=== PATIENT | female | born 1945 | race Caucasian/White ===

== ENCOUNTER → 2017-01-25 | Outpatient (CLI) | payer OTHER, BC ==
[~2017-01-25] MED LIST: ADVAIR 250-501 EACH INH; ALBUTEROL2.5 MG/31 INH; ALPRAZOLAM PO; ASPIRIN EC81 M1 PO; BENADRYL25 MG; BENADRYL25 MG PO; BYSTOLIC 5 MG5 M1 PO; CALCIUM 500 +1 EAC4 PO; CARAFATE1 GM/10 ML PO; CEFTIN 250 MG250 MG PO; CEPACOL SORE T1 EAC8 PO; CIPROFLOXACIN500 M1 PO; CO Q-10100 MG PO; CORRECTOL5 M1 PO; DULCOLAX5 MG PO; DYAZIDE 37.5-21 EACH PO; FLOMAX0.4 MG PO; HYDROXYCHLOROQ200 M1 PO; LIPITOR20 MG PO; MAGNESIUM400 M1 PO; MAGNESIUM400 MG PO; MEDROL4 MG PO; MEDROLDOSEPACK PO; MOM PO; MUCINEX TA600 MG/TA2 PO; MULTIVITAMINS PO; MULTIVITAMINS1 EAC7; NAPROSYN250 MG PO; NEXIUM 40 MG CA40 M1 PO; NORVASC 5 MG TAB5 MG PO; NYSTATIN 1100000 U/M PO; POTASSIUM20 PO; PREDNISONE 10 M10 M1 PO; PREDNISONE 10 M10 MG PO; PROTONIX40 M1 PO; VENTOLIN HFA 1818 GM INH; VIBRAMYCIN 100100 M2 PO; VITAMIN D400 UNI1; XANAX 0.25 MG0.25 MG; XANAX 0.5 MG0.5 MG PO
== END ==
LOC: RAD 03:42
DX: Z12.31 Encounter for screening mammogram for malignant neoplasm of breast (principal)

== ENCOUNTER → 2017-05-01 | Outpatient (CLI) | payer OTHER, BC ==
[~2017-05-01] MED LIST changes: +ADVAIR HFA 230M12 GM INH; +BYSTOLIC2.5 MG PO; +HYDROCHLOROTH12.5 M2 PO; +MEDROL8 MG PO; +PLAVIX 75 MG TA75 M1 PO; +XANAX1 MG PO; +ZANTAC 7575 MG PO; +ZETIA10 MG PO; +[UNRECOGNIZED DRUG - OTHER] PO
== END ==
LOC: ULTRA 09:09
DX: E04.1 Nontoxic single thyroid nodule (principal); J18.9 Pneumonia, unspecified organism; K21.9 Gastro-esophageal reflux disease without esophagitis; E87.6 Hypokalemia; E83.42 Hypomagnesemia; Z90.49 Acquired absence of other specified parts of digestive tract; Z98.890 Other specified postprocedural states; Z87.891 Personal history of nicotine dependence

== ENCOUNTER → 2017-05-27 | Outpatient (CLI) | payer OTHER, BC ==
--- NOTE | ~2017-05-27 | CNG ---
[facility] [place] [address] CYTO-NONGYN REPORT PROCEDURE Name: SAMANTHA GONZALEZ Room #: REG BLANCA FultonRoger.#: [id number] Admission: 05/27/17 Date of : 43 Discharge: Report #: [id number] Path Case #: [id number] CYTOPATHOLOGY REPORT COLLECTION DATE: 05/27/2017 RECEIVED DATE: 05/28/2017 SUBMITTING PHYS: Dr. Braulio York OTHER PHYS: Dr. Braulio Espinoza CLINICAL HISTORY: Left superior neck thyroid nodule SPECIMEN(S) RECEIVED: A.Fine needle aspiration,Left superior neck thyroid * * * * * * * * * * * * FINAL DIAGNOSIS: A. Fine needle aspiration, left superior neck thyroid: - BETHESDA CATEGORY III FOLLICULAR LESION OF UNDETERMINED SIGNIFICANCE. - THYROID FOLLICULAR CELLS WITH FOCAL NUCLEAR ATYPIA, BACKGROUND COLLOID AND RARE MACROPHAGES. (SEE COMMENT) COMMENT: Cytomorphological examination is limited due to only air-dried Diff-Quik stained smears being available for evaluation. A pap stained ThinPrep slide and cell block are also available. The thyroid follicular cells are predominantly in a macrofollicular pattern; however, focal nuclear atypia is noted. Background colloid and rare macrophages are also seen. The findings represent a follicular lesion of undetermined significance. Clinical and radiographic correlation is required. The case is co-reviewed with Dr. Luly Nava. PATHOLOGIST: Kady Lees M.D. REPORT ELECTRONICALLY SIGNED BY: Kady Lees M.D. DATE/TIME: 05/29/2017 16:44 * * * * * * * * * * * * GROSS PATHOLOGY: A. Fine needle aspiration,Left superior neck thyroid: The specimen is labeled "Samantha Gonzalez" and consists of two air dried slides. Twenty-eight mL of cloudy red fluid in fixative from the needle rinse is also submitted and one ThinPrep slide and an alcohol fixed cell block were prepared from this material. (mm 05.28.2017) RADIO DIVISION CAPTAIN(S): EVELIA Ponce(ASCP) [address] [address] CYTO-NONGYN REPORT PROCEDURE Name: SAMANTHA GONZALEZ [facility] [id number] Admission: 05/27/17 Date of : 43 Discharge: Report #: [id number] Path Case #: [id number] INITIAL CPT CODE(S): A; 74231, 03411 Professional services performed by [facility] at [address], [place] [address] Technical services performed by [facility] at [address] [place] [address], [facility] [address], [place] [address]. PROCEDURE REPORT (Order Date: 07/03/2017 00:00) COMMENT: Please see next page for scanned image of report submitted by [facility] programmer analyst consultant pathologist, Brenda Simeon MD. (CLW:robert; d/t: 07/22/2017) PATHOLOGIST: Kady Lees M.D. REPORT ELECTRONICALLY SIGNED BY: Kady Lees M.D. DATE/TIME: 07/22/2017 22:20 [facility] [address] [facility], [address] [place] [address] PHONE: [phone] DIRECTOR: Nic Alicia M.D. * * * END OF REPORT * * *
== END | disposition home or self-care (01) ==
LOC: SPEC 07:23
DX: E04.2 Nontoxic multinodular goiter (principal); Z88.0 Allergy status to penicillin; Z88.8 Allergy status to other drugs, medicaments and biological substances; Z79.899 Other long term (current) drug therapy; Z79.82 Long term (current) use of aspirin; Z98.890 Other specified postprocedural states

== ENCOUNTER → 2017-09-09 | Outpatient (CLI) | payer OTHER, BC ==
[~2017-09-09] MED LIST changes: -ADVAIR HFA 230M12 GM INH; -BYSTOLIC2.5 MG PO; -HYDROCHLOROTH12.5 M2 PO; -MEDROL8 MG PO; -PLAVIX 75 MG TA75 M1 PO; -XANAX1 MG PO; -ZANTAC 7575 MG PO; -ZETIA10 MG PO; -[UNRECOGNIZED DRUG - OTHER] PO
== END ==
LOC: ULTRA 08:23
DX: I77.1 Stricture of artery (principal)

== ENCOUNTER → 2018-03-06 | Outpatient (CLI) | payer OTHER, BC ==
[~2018-03-06] MED LIST changes: +ADVAIR HFA 230M12 GM INH; +BYSTOLIC2.5 MG PO; +HYDROCHLOROTH12.5 M2 PO; +MEDROL8 MG PO; +PLAVIX 75 MG TA75 M1 PO; +XANAX1 MG PO; +ZANTAC 7575 MG PO; +ZETIA10 MG PO; +[UNRECOGNIZED DRUG - OTHER] PO
== END ==
LOC: ULTRA 10:09
DX: E04.2 Nontoxic multinodular goiter (principal)

== ENCOUNTER → 2018-06-11 | Outpatient (CLI) | payer OTHER, BC | LOC: RAD 10:33 | DX: Z12.31 Encounter for screening mammogram for malignant neoplasm of breast (principal) ==

== ENCOUNTER → 2018-09-26 | Outpatient (CLI) | payer OTHER, BC | LOC: ULTRA 01:18 | DX: N64.59 Other signs and symptoms in breast (principal); C34.91 Malignant neoplasm of unspecified part of right bronchus or lung ==

== ENCOUNTER → 2018-11-04 | Outpatient (CLI) | payer OTHER, BC ==
[2018-11-04 09:17] LABS: CREATININE 1.4 mg/dL (0.6-1.0)
== END ==
LOC: CAT 08:45
PROVIDERS: Internal Medicine Rheumatology
DX: I65.23 Occlusion and stenosis of bilateral carotid arteries (principal); L29.9 Pruritus, unspecified

== ENCOUNTER 2018-12-05 05:30 | Inpatient (IN) | payer OTHER, BC ==
[2018-12-01 10:40] LABS: URINE BILIRUBIN NEGATIVE (Negative); URINE BLOOD NEGATIVE (Negative); URINE CLARITY CLEAR; URINE COLOR YELLOW; URINE GLUCOSE-RANDOM* NEGATIVE (Negative); URINE KETONES NEGATIVE (Negative); URINE LEUKOCYTES-REFLEX 1+ (Negative); URINE NITRITE-REFLEX NEGATIVE (Negative); URINE PROTEIN (DIPSTICK) NEGATIVE (Negative); URINE UROBILINOGEN 0.2 E.U./dl (0.2-1.0)
[2018-12-01 10:56] LABS: BACTERIA-REFLEX 1-9 Few /HPF (None Seen); CASTS None Seen /LPF (None Seen); CRYSTALS None Seen /LPF (None Seen); SQUAMOUS 0-3 Few /LPF (0-3); URINE RBC 0-2 Rare /HPF (0-2); URINE WBC-REFLEX 0-5 Rare /HPF (0-5)
[2018-12-01 11:48] LABS: ABSOLUTE NEUTROPHILS 10.1 thou/uL (1.4-8.2); BASOPHILS 0.3 % (0.0-2.0); EOSINOPHILS 0.2 % (0.0-3.0); HEMATOCRIT 37.1 % (37.0-47.0); HEMOGLOBIN 11.9 gm/dL (12.0-15.0); LYMPHOCYTES 4.8 % (24.0-44.0); MCH 30.5 pg (26.0-34.0); MCV 95.1 fL (80.0-100.0); MONOCYTES 3.9 % (1.0-8.0); PLATELET COUNT 227 thou/uL (150-400); POLYS 90.8 % (36.0-66.0); WBC 11.1 thou/uL (4.0-11.0)
[2018-12-01 11:59] LABS: APTT 24.9 Seconds (24.5-32.8); PROTIME 9.9 Seconds (9.3-11.4)
[2018-12-01 12:04] LABS: ALBUMIN 3.7 g/dL (3.4-5.0); CALCIUM 9.2 mg/dL (8.5-10.1); CREATININE 1.4 mg/dL (0.6-1.0); POTASSIUM 4.1 mmol/L (3.5-5.1); TOTAL BILIRUBIN 0.4 mg/dL (<0.1-1.0); TOTAL PROTEIN 7.1 g/dL (6.4-8.2)
--- NOTE | 2018-12-02 08:36 | EKG ---
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 12/02/18 0836 41 41 Manas Hammer MD, [facility] /EPI
[~2018-12-05] VITALS: Ht 157.5 cm; Wt 49.0 kg
[~2018-12-05 05:30] MED LIST changes: +CLOBETASOL PROP15 GM TOP; +NICORELIEF2 MG PO; +PREMARIN30 GM TOP; +WIXELA 500-501 EACH INH; +ZANTAC 150MG T150 M1 PO
[2018-12-09] VITALS (19 sets, daily range): BP systolic 96–153; BP diastolic 41–72
--- NOTE | 2018-12-09 19:43 | NUR ---
ASSUMED CARE AT 1330. PT TRANSFERRED FROM RECOVERY ROOM POST R FEMORAL ENDARTERECTOMY. PT ARRIVED WITH ELFEGO WOUND VAC TO RIGHT GROIN. VAC DRESSING INTACT, NO LEAK NOTED. PT SHORTLY AFTER ARRIVAL BECAME VERY ANXIOUS AND STATED SHE WAS FEELING SOB. RT GAVE PT BREATHING TX. PT STATED SHE STILL FELT SOB, LUNGS WERE AUSCULTATED AND CLEAR/DIM ON AUSCULTATION. RN REVIEWED PT'S HOME MEDICATIONS WITH HER AND NOTED ANTI-ANXIETY MEDICATION. PHYSICIAN UPDATED ORDERS FOR HOME MEDS AND ANTI-ANXIETY MEDICATION ADMINISTERED ORDERED. PT STATED SHE FELT MUCH RELIEF AND WAS NO LONGER SOA. PT'S DORSALIS PEDIS AND POSTERIOR TIBIAL PULSE DOPPLED. R FOOT IS WARM TO TOUCH AND PT STATES SHE IS NO LONGER HAVING SHOOTING PAINS LIKE SHE WAS HAVING PRIOR TO SURGERY. PT GOT UP TO BEDSIDE COMMODE WITH 1 ASSIST, USE OF GAIT BELT AND YELLOW NON-SKID SOCKS. PT STATES SHE WOULD LIKE TO WORK ON STAIRS WITH PT TOMORROW BECAUSE SHE HAS STAIRS AT HOME.
[2018-12-10] VITALS (14 sets, daily range): BP systolic 103–142; BP diastolic 48–85
[2018-12-10 04:44] LABS: HEMATOCRIT 28.7 % (37.0-47.0); HEMOGLOBIN 9.2 gm/dL (12.0-15.0); MCH 30.6 pg (26.0-34.0); MCHC 33.2 % (28.0-37.0); MCV 94.9 fL (80.0-100.0); RBC 3.02 mil/uL (4.20-5.00); RDW 15.7 % (10.5-14.5); WBC 7.7 thou/uL (4.0-11.0)
[2018-12-10 04:46] LABS: CALCIUM 8.6 mg/dL (8.5-10.1); CREATININE 1.3 mg/dL (0.6-1.0); MAGNESIUM 1.6 mg/dL (1.8-2.4); POTASSIUM 4.6 mmol/L (3.5-5.1); TROPONIN-I 0.12 ng/mL (<0.06)
--- NOTE | 2018-12-10 06:30 | NUR ---
PT A&O, DENIES PAIN. WOUND VAC TO R GROIN, NO DRAINAGE OVERNIGHT. AROUND 0100, PT HAD A TEN BEAT RUN OF VTACH. DR. WEEKS NOTIFIED. LABS ORDERED BY RITA. LOW AND REPLACED. PT HAD ONE MORE INCIDENT WITH A SIX BEAT RUN OF VTACH AT 0200. SINCE THEN, PT HAS REMAINED SINUS RHYTHM. WILL CONTINUE TO MONITOR.
--- NOTE | 2018-12-10 07:45 | EKG ---
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 : 1945 Requested By: Ryann Morgan Order Number: [id number] MD: Manas Hammer Measurements Intervals [place] Rate: 86 P: 67 ID: 160 QRS: 72 QRSD: 118 T: 33 QT: 407 QTc: 487 Interpretive Statements Sinus rhythm Early R-wave progression Compared to ECG 12/01/2018 10:42:58 Right bundle branch block is no longer present Electronically Signed On 12-10-2018 7:44:52 CDT by Manas Hammer [email or web address] <ELECTRONICALLY SIGNED> By: Manas Hammer MD, [facility] 12/10/18 0744 1152 1152 Manas Hammer MD, [facility] /EPI
[2018-12-10 08:42] LABS: HEMOGLOBIN 9.6 gm/dL (12.0-15.0); MCH 31.3 pg (26.0-34.0); RBC 3.05 mil/uL (4.20-5.00); RDW 15.7 % (10.5-14.5)
[2018-12-10 08:51] LABS: CREATININE 1.4 mg/dL (0.6-1.0); MAGNESIUM 2.7 mg/dL (1.8-2.4); POTASSIUM 4.3 mmol/L (3.5-5.1)
--- NOTE | 2018-12-10 10:21 | NUR ---
REPORT RECEIVED FROM PREVIOUS RN. DENIES DISCOMFORT, ALERT/ORIENTED X 4, COOPERATIVE, XANAX GIVEN PER PT REQUEST FOR ANXIETY, SR, SA02 DOWN TO 84% WHEN SLEEPING- 2L/NC REPLACED, THEN O2 OFF WHEN PT AWAKE, MOIST/DRY NONPRODUCTIVE COUGH, DENIES HAVING DIFFICULTY BREATHING "NO MORE THAN MY USUAL", TOLERATING MEAL, VOIDS ADEQUATE AMOUNT PER [facility]. UPDATING PT AND SPOUSE ON ALL CARES.
--- NOTE | 2018-12-10 11:20 | NUR ---
REPORT GIVEN TO LONA SCHMIDT. PT AMBULATED WITH [facility]. PT TRANSFERRED TO ROOM 206 ON MONITOR PER WHEELCHAIR WITH BEBA POZO. SPOUSE PRESENT.
--- NOTE | 2018-12-10 13:42 | NUR ---
PT TRANSFERRED FROM ICU WITH SPOUSE ACCOMPANIED BY STAFF, VIA W/C A&0X4, USED RESTROOM, UNSTEADY, STATES THIS IS NEW FOR HER, ICU ALSO GAVE THIS REPORT. R GROIN SITE WITH WOUND VAC, PREVEENA, SLIGHTLY MORE PRONOUNCED THEN LEFT SIDE, NO HEMATOMA, HAD CHARGE NURSE ALSO EVAL. PT DECLINES PAIN MEDICATION YET DOES WANT US TO KEEP ON TOP OF HER XANAX. ROOM AIR, TELE, SEE SEPARATE INTERVENTIONS FOR ASSESSMENTS
--- NOTE | 2018-12-10 16:41 | 2DMMODE ---
[facility] [place] [address] 2 D/M-MODE ECHOCARDIOGRAM Name: JOLIE ARENAS Room #: 206-P [facility] IN M.R.#: [id number] Admission: 12/09/18 Attend Phys: Will Lance MD Discharge: Date of : 43 Date of Service: 12/10/18 [facility] Report #: [id number] THIS REPORT FOR: //name// APPROVED REPORT Study performed: 12/10/2018 14:53:54 EXAM: Comprehensive 2D, Doppler, and color-flow Echocardiogram Patient Location: Bedside Room #: [facility] Status: routine BSA: 1.47 HR: 85 bpm BP: 111/78 mmHg Rhythm: NSR Other Information Study Quality: Adequate Indications COPD CAD Hypertension/HDD 2D Dimensions LVOT Diam: 17.66 (18-24mm) IVC: 18.00 mm Volumes Left Atrial Volume (Systole) Single Plane 4CH: 35.84 mL Single Plane 2CH: 57.41 mL LA ESV Index: 35.00 mL/m2 Aortic Valve AoV Peak Chema.: 2.99 m/s AO Peak Gr.: 35.72 mmHg LVOT Max P.25 mmHg AO Mean Gr.: 16.59 mmHg LVOT Mean P.78 mmHg AO V2 Mean: 1.89 m/s LVOT Max V: 1.25 m/s AO V2 VTI: 61.09 cm LVOT Mean V: 0.93 m/s CLEMENT (VTI): 1.23 cm2 LVOT V1 VTI: 30.62 cm CLEMENT Vmax: 1.02 cm2 SV (LVOT): 74.94 mL Mitral Valve E/A Ratio: 1.1 [facility] [place] [address] 2 D/M-MODE ECHOCARDIOGRAM Name: JOLIE ARENAS Room #: 206-P [facility] IN ..#: [id number] Admission: 12/09/18 Attend Phys: Will Lance MD Discharge: Date of : 43 Date of Service: 12/10/18 1640 Report #: [id number] MV Decel. Time: 167.08 ms MV E Max Chema.: 1.08 m/s MV A Chema.: 0.94 m/s MV PHT: 48.45 ms IVRT: 83.04 ms Pulmonary Valve PV Peak Chema.: 1.01 m/s PV Peak Gr.: 4.06 mmHg Pulmonary Vein P Vein S: 0.39 m/s P Vein A: 0.25 m/s P Vein D: 0.37 m/s P Vein A Dur.: 115.3 msec P Vein S/D Ratio: 1.05 Left Ventricle The left ventricle is normal size. There is normal LV segmental wall motion. There is normal left ventricular wall thickness. The left ventricular systolic function is normal. The left ventricular ejection fraction is within the normal range. LVEF is 55-60%. The left ventricular diastolic function is normal. Right Ventricle The right ventricle is normal size. The right ventricular systolic function is normal. Atria Left atrium is at the upper limits of normal. The right atrium size is normal. Aortic Valve Aortic valve is mild to moderately calcified. Trace aortic regurgitation. Mild-moderate aortic stenosis. Calculated aortic valve area is 1.2 cm2 with maximum pressure gradient of 36 mmHg and mean pressure gradient of 17 mmHg. Mitral Valve Mild mitral annular calcification, mild leaflet sclerosis There is no mitral valve regurgitation No evidence of mitral valve stenosis. Tricuspid Valve The tricuspid valve is normal in structure. There is no tricuspid valve regurgitation noted. Pulmonic Valve The pulmonary valve is normal in structure. There is no pulmonic [place] [address] [place] [address] 2 D/M-MODE ECHOCARDIOGRAM Name: JOLIE ARENAS Room #: 206-P [facility] IN [facility]#: [id number] Admission: 12/09/18 Attend Phys: Will Lance MD Discharge: Date of : 43 Date of Service: 12/10/18 1640 Report #: [id number] valvular regurgitation. Great Vessels The aortic root is normal in size. IVC is normal in size and collapses >50% with inspiration. Pericardium There is no pericardial effusion. <Conclusion> The left ventricular systolic function is normal. There is normal LV segmental wall motion. LVEF is 55-60%. Aortic valve is mild to moderately calcified. Mild-moderate aortic stenosis. Trace insufficiency Calculated aortic valve area is 1.2 cm2 with maximum pressure gradient of 36 mmHg and mean pressure gradient of 17 mmHg. Mild mitral annular calcification, mild leaflet sclerosis. No mitral valve regurgitation Pulmonary artery pressure could not be reliably ascertained. There is no pericardial effusion. <ELECTRONICALLY SIGNED> By: Manas Hammer MD, FACC 12/10/18 1640 1640 1640 Manas Hammer MD, FACC /INF
--- NOTE | 2018-12-11 04:06 | NUR ---
ASSESSMENTS CHARTED. UP SEVERAL TIMES DURING NIGHT FOR THE BATHROOM. SAT UP DURING THE MIDDLE OF THE NIGHT WANTING TO STAY UP UNITL MORNING TO SEE THE DOCTORS IN THE MORNING BECAUSE SHE DID NOT LIKE THE BED/CHAIR ALARM ON. DUE TO THE WOUND VAC AND UNSTEADINESS ON STANDING. PLAN OF CARE IS TO GO HOME IN THE MORNING.
[2018-12-11 04:45] VITALS: BP 121/58
[2018-12-11 07:34] VITALS: BP 115/60
--- NOTE | 2018-12-11 10:07 | PATH ---
[facility] [address] [place] [address] PATHOLOGY RPT PROCEDURE Name: SUGEYSAMANTHA ORELLANA Room #: 206-P ADM IN M.R.#: [id number] Admission: 12/09/18 Date of : 43 Discharge: Report #: [id number] Path Case #: [id number] [facility] Accession Number: [id number] . 01 Material submitted: . artery - RIGHT FEMORAL ARTERY PLAQUE. Modifiers: right . 01 Clinical history: . Peripheral artery disease . 02 Diagnosis: Femoral artery plaque, right, endarterectomy: - Fragments of vessel wall with myxoid degeneration as well as reactive changes. - Fragments of calcified and sclerotic plaque material. (IUV:pit; 12/10/2018) QTP/12/10/2018 . 02 Electronically signed: . Luly Nava MD, Pathologist NPI- [id number] . 01 Gross description: . The specimen is received in formalin, labeled "Samantha Gonzalez, right femoral artery plaque". Received is a moderate amount of yellow-swann calcified tissue with possible adherent vascular tissue measuring 4.7 x 1.8 x 1.0 cm in aggregate dimensions. The specimen is submitted representatively in cassette A1, following light decalcification. (CAA; 12/09/2018) QAC/QAC . 02 Pathologist provided ICD-10: I70.201 . 02 CPT . 172390, [id number] Specimen Comment: A courtesy copy of this report has been sent to Specimen Comment: [phone], , . Specimen Comment: Report sent to ,DR WILKERSON / DR HUGHES Performed at: [address], [place] [id number] MD Tato Burnett MD Phone: [phone] Performed at: [address] [id number] MD Luly Nava MD Phone: [phone]
[2018-12-11 11:30] VITALS: BP 126/61
[2018-12-11 12:00] VITALS: BP 115/60
--- NOTE | 2018-12-11 13:36 | NUR ---
ASSESSMENT CHARTED PT ALERT AND ORIENTED. VSS. WOUND VAC INTACT ON THE RIGHT GROIN. SEEN BY DR. RASHEED, DR. WEEKS, AND DR. WILKERSON. ORDERS GIVEN TO DISCHARGE PT TO HOME WITH HH. DISCHARGE INSRUCTIONS GIVEN TO PT. PT VERBERLIZE UNDERSTANDING. PT LEFT THE FACILITY ACCOMPANIED BY THE .
[2018-12-11 14:30] VITALS: BP 115/60
--- NOTE | 2018-12-11 14:30 | NUR ---
Case opened for hh referral. Pt receptive and has used [facility] in the past. No preference but would use [facility] again if they can accept. The pt has a rwalker at home. Pt's spouse here to take her home today. She is anxious about the wound vac. She has a f/u appt with surgery on saturday to have the vac removed. no wound care orders for home. HH RN for med mngt and cardio pulm assessment, PT eval for home saftey. [facility] notified of referral. They can accept and will see the pt tomorrow.
--- NOTE | 2018-12-14 10:55 | O ---
[facility] [place] [address] OPERATIVE REPORT Name: JOLIE ARENAS Room #: 206-P [facility] IN M.R.#: [id number] Admission: 12/09/18 Attend Phys: Will Lance MD Discharge: 12/11/18 Date of : 43 Report #: [id number] THIS REPORT FOR: //name// CC: Javier Lance Braulio Box DATE OF SERVICE: 12/09/2018 PREOPERATIVE DIAGNOSIS: Right femoral arterial occlusive disease. POSTOPERATIVE DIAGNOSIS: Right femoral arterial occlusive disease. OPERATION: Right femoral endarterectomy. SURGEON: Will Lance M.D. MANAGER PRODUCT DESIGN: DOE Fischer. ANESTHESIA: General. INDICATIONS: The patient is a 73-year-old with bilateral lower extremity discomfort, but worse on the right. The patient has a long area of near total occlusion on the right common femoral artery that extends into the superficial femoral artery. FINDINGS AND TECHNIQUE: Please note the side operated on was the right side. I inadvertently typed the incorrect side in the initial operative note in the electronic medical record. After general anesthesia was established, an oblique incision was made in the right groin. The common deep and superficial femoral arteries were identified and controlled. There was a long length of calcific plaque in the vessel and it was necessary to control the vessel above the inferior epigastric artery and well down onto the superficial femoral. 10,000 units of heparin were given. The vessels were occluded. The arteriotomy was made, a long endarterectomy was performed was necessary to extend this to the superficial femoral artery for some distance until we were able to find a reasonable area to end the plaque excision. The Neointima was inspected and all loose debris was removed. Tacking sutures were placed as appropriate and then a long pericardial patch was required. The entire patch was needed to close the arteriotomy with running Prolene. Prior to finishing the closure, the vessels were backbled and flow was reestablished. Tacking sutures were placed as necessary. Protamine was given to reverse the [facility] [address] [place] [address] OPERATIVE REPORT Name: JOLIE ARENAS Room #: 206-P [facility] IN M.R.#: [id number] Admission: 12/09/18 Attend Phys: Will Lance MD Discharge: 12/11/18 Date of : 43 Report #: [id number] heparin. When hemostasis was satisfactory, the wound was closed in layers. The patient was taken to the recovery area where a good Doppler signal was felt distally. The artery itself was interrogated with the Doppler prior to closure. All counts reported as correct. <ELECTRONICALLY SIGNED> By: Will Lance MD 12/14/18 1055 0757 0912 Will Lance MD /nt
== END 2018-12-11 13:43 | disposition home health service (06) | DRG 252 ==
LOC: PRE 05:30 → ICU 12-09 05:35 → TBA 12-09 05:35 → PRE 12-09 06:15 → ICU 12-09 12:57 → PRE 12-09 14:33 → 2N 12-10 13:44 → ENTRNSPT 12-11 13:20 → EDTRNSPTSTS 12-11 13:34 → 2N 12-11 13:43
PROVIDERS: Physician Assistant; ADMIT Surgery Vascular Surgery
PROC: 04UK0KZ Supplement Right Femoral Artery with Nonautologous Tissue Substitute, Open Approach (ICD-10-PCS; principal; 2018-12-09)
PROC: 04CK0ZZ Extirpation of Matter from Right Femoral Artery, Open Approach (ICD-10-PCS; principal; 2018-12-09)
DX: I70.291 Other atherosclerosis of native arteries of extremities, right leg (principal); E43 Unspecified severe protein-calorie malnutrition; D62 Acute posthemorrhagic anemia; I47.1 Supraventricular tachycardia; I25.10 Atherosclerotic heart disease of native coronary artery without angina pectoris; J44.9 Chronic obstructive pulmonary disease, unspecified; E78.5 Hyperlipidemia, unspecified; J45.909 Unspecified asthma, uncomplicated; F32.9 Major depressive disorder, single episode, unspecified; M35.00 Sjogren syndrome, unspecified; N18.9 Chronic kidney disease, unspecified; F41.9 Anxiety disorder, unspecified; I35.0 Nonrheumatic aortic (valve) stenosis; I12.9 Hypertensive chronic kidney disease with stage 1 through stage 4 chronic kidney disease, or unspecified chronic kidney disease; I65.29 Occlusion and stenosis of unspecified carotid artery; Z79.52 Long term (current) use of systemic steroids; Z85.3 Personal history of malignant neoplasm of breast; Z88.0 Allergy status to penicillin; Z88.8 Allergy status to other drugs, medicaments and biological substances; Z79.82 Long term (current) use of aspirin; Z79.899 Other long term (current) drug therapy; Z85.118 Personal history of other malignant neoplasm of bronchus and lung; Z87.891 Personal history of nicotine dependence; Z98.49 Cataract extraction status, unspecified eye
CPT/HCPCS: 10078; 10081; 47375; 48888; 50010; 50101; 50386; 50643; 50953; 51751; 56524; 56526; 56528; 56531; 56534; 56668; 56760; 57092; 57093; 62110; 62900; 70005

== ENCOUNTER → 2019-03-27 | Outpatient (CLI) | payer OTHER, BC ==
[~2019-03-27] MED LIST changes: +TOPROL XL50 MG PO
== END ==
LOC: RAD 12:53
DX: M43.8X4 Other specified deforming dorsopathies, thoracic region (principal); M51.34 Other intervertebral disc degeneration, thoracic region; M47.814 Spondylosis without myelopathy or radiculopathy, thoracic region

== ENCOUNTER → 2019-04-08 | Outpatient (CLI) | payer OTHER, BC | LOC: MRI 09:04 | DX: S22.060A Wedge compression fracture of T7-T8 vertebra, initial encounter for closed fracture (principal); E04.1 Nontoxic single thyroid nodule; X58.XXXA Exposure to other specified factors, initial encounter; Y93.89 Activity, other specified; Y92.89 Other specified places as the place of occurrence of the external cause; Y99.8 Other external cause status ==

== ENCOUNTER → 2019-04-10 | Outpatient (CLI) | payer OTHER, BC ==
[~2019-04-10] VITALS: Ht 157.5 cm; Wt 22.2 kg
[2019-04-10 12:41] VITALS: BP 143/77
[2019-04-10 12:54] LABS: HEMATOCRIT 39.8 % (37.0-47.0); HEMOGLOBIN 12.8 gm/dL (12.0-15.0); MCH 33.3 pg (26.0-34.0); MCHC 32.3 g/dL (28.0-37.0); MCV 103.2 fL (80.0-100.0); RBC 3.85 mil/uL (4.20-5.00); RDW 17.8 % (10.5-14.5); WBC 6.9 thou/uL (4.0-11.0)
[2019-04-10 13:03] LABS: PROTIME 10.4 Seconds (9.3-11.4)
[2019-04-10 14:23] VITALS: BP 138/65
== END | disposition home or self-care (01) ==
LOC: CATH 12:02
PROVIDERS: Nuclear Medicine Nuclear Cardiology
DX: M54.9 Dorsalgia, unspecified (principal); M80.08XA Age-related osteoporosis with current pathological fracture, vertebra(e), initial encounter for fracture; I11.0 Hypertensive heart disease with heart failure; I50.9 Heart failure, unspecified; E78.5 Hyperlipidemia, unspecified; J44.9 Chronic obstructive pulmonary disease, unspecified; N28.9 Disorder of kidney and ureter, unspecified; F41.9 Anxiety disorder, unspecified; F32.9 Major depressive disorder, single episode, unspecified; K21.9 Gastro-esophageal reflux disease without esophagitis; Z98.890 Other specified postprocedural states; Z90.49 Acquired absence of other specified parts of digestive tract; Z98.41 Cataract extraction status, right eye; Z98.42 Cataract extraction status, left eye; Z85.118 Personal history of other malignant neoplasm of bronchus and lung; Z79.899 Other long term (current) drug therapy; Z87.891 Personal history of nicotine dependence; Z88.0 Allergy status to penicillin; Z88.8 Allergy status to other drugs, medicaments and biological substances

== ENCOUNTER → 2019-05-04 | Outpatient (CLI) | payer OTHER, BC ==
[~2019-05-04] VITALS: Ht 157.5 cm; Wt 45.4 kg
[~2019-05-04] MED LIST changes: +ADULT LOW DOSE81 MG PO; +PLAVIX 75 MG TA75 MG PO
[2019-05-04 12:39] VITALS: BP 170/87
[2019-05-04 13:28] LABS: HEMATOCRIT 42.8 % (37.0-47.0); HEMOGLOBIN 13.8 gm/dL (12.0-15.0); MCH 33.5 pg (26.0-34.0); MCHC 32.1 g/dL (28.0-37.0); MCV 104.3 fL (80.0-100.0); RBC 4.1 mil/uL (4.20-5.00); RDW 14.9 % (10.5-14.5); WBC 6.6 thou/uL (4.0-11.0)
[2019-05-04 13:31] LABS: CALCIUM 10.1 mg/dL (8.5-10.1); CREATININE 1.4 mg/dL (0.6-1.0); POTASSIUM 3.5 mmol/L (3.5-5.1)
[2019-05-04 13:37] LABS: PROTIME 10.7 Seconds (9.3-11.4)
[2019-05-04 14:53] VITALS: BP 118/63
[2019-05-04 14:56] VITALS: BP 118/63
== END | disposition home or self-care (01) ==
LOC: CATH 10:12 → MRI 10:12 → RAD 10:12 → MRI 11:25
PROVIDERS: Nuclear Medicine Nuclear Cardiology
DX: M54.9 Dorsalgia, unspecified (principal); M80.08XA Age-related osteoporosis with current pathological fracture, vertebra(e), initial encounter for fracture; I11.0 Hypertensive heart disease with heart failure; I50.9 Heart failure, unspecified; E78.5 Hyperlipidemia, unspecified; J44.9 Chronic obstructive pulmonary disease, unspecified; F41.9 Anxiety disorder, unspecified; F32.9 Major depressive disorder, single episode, unspecified; K21.9 Gastro-esophageal reflux disease without esophagitis; N28.9 Disorder of kidney and ureter, unspecified; Z98.41 Cataract extraction status, right eye; Z98.42 Cataract extraction status, left eye; Z79.899 Other long term (current) drug therapy; Z98.890 Other specified postprocedural states; Z90.49 Acquired absence of other specified parts of digestive tract; Z85.118 Personal history of other malignant neoplasm of bronchus and lung; Z87.19 Personal history of other diseases of the digestive system; Z87.891 Personal history of nicotine dependence; Z88.0 Allergy status to penicillin; Z88.8 Allergy status to other drugs, medicaments and biological substances; Z79.82 Long term (current) use of aspirin

== ENCOUNTER 2019-05-05 11:43 | Inpatient (IN) | payer OTHER, BC ==
[~2019-05-05] VITALS: Ht 157.5 cm; Wt 45.4 kg
--- NOTE | ~2019-05-05 | HC ---
[facility] [place] [address] CONSULTATION Name: JOLIE ARENAS Room #: 203-P ADM IN M.R.#: [id number] Admission: 05/05/19 Attend Phys: Anil Saenz MD Discharge: Date of : 43 Report #: [id number] THIS REPORT FOR: //name// CC: FAM unknown Anil Saenz DATE OF SERVICE: 05/05/2019 HISTORY OF PRESENT ILLNESS: This is a 74-year-old female patient who was seen by me for possible stroke. I talked to the Emergency Room physician in detail. Subsequently, I talked to the corporate counsel who saw this patient. This patient went to sleep last night okay. Subsequently, she woke up this morning with speech difficulty. Speech was garbled initially, but subsequently it became better. She still does appear to have some speech difficulty, but the thinks the patient has improved significantly. Review of systems indicate that this patient had some baseline creatinine elevation. She does have a history of arterial disease and she had a stent put in. She has an elevated troponin, which corporate counsel is evaluating her. She has a history of lung cancer and urinary tract infection. She has a history of GERD, COPD, cataracts, claustrophobia, panic attack, anxiety, problem in the parotid gland, pleural effusion. Apparently, one of the record indicate that she also has a history of Sjogren disease. She does have a history of hyperlipidemia. At one time, she used to be on combination of aspirin and Plavix. She did not like that. She said she was bleeding excessively. That was after the stent placement. Otherwise, she is not complaining of any new eye, ENT, cardiac, respiratory, GI, , musculoskeletal, constitutional, dermatological, hematological, psychiatric, throat, allergic symptom associated with present symptomatology. She does indicate that she has some procedure done, which looks like vertebroplasty yesterday. PAST MEDICAL HISTORY: The patient's past medical history is negative for stroke, but is positive for vascular disease. FAMILY HISTORY: Negative for early age stroke. SOCIAL HISTORY: She used to smoke, but does not smoke now. PHYSICAL EXAMINATION: The patient's examination indicates she is alert, responsive. She still has some speech difficulty, but she is oriented and able to follow simple commands. Cranial nerve examination 2-12 looks unremarkable. Strength, sensation, reflexes and tone are symmetrical. There is no meningeal sign. There is no carotid bruit. I could not look at the patient's fundus. She is a reasonably well-built individual. She does not have any dysmorphic features of eyes, ears, and face. Blood pressure is 128/57, respiration is 20, pulse is 71, and temperature is 98.4. [address] [address] CONSULTATION Name: JOLIE ARENAS Room #: 203-P [facility] IN M.R.#: [id number] Admission: 05/05/19 Attend Phys: Anil Saenz MD Discharge: Date of : 43 Report #: [id number] LABORATORY DATA: White count is 6.6, creatinine is high at 1.3. Her MRI and MRA was reviewed and it does demonstrate stroke. IMPRESSION AND PLAN: Cerebrovascular accident. It appeared to be secondary to small vessel disease. She has predisposition for vascular abnormalities, so we will check for cardiolipin antibodies and some collagen vascular profile. There is some history of Sjogren disease in this patient that may have to be further addressed depending upon the workup. At one time, her B12 was on the lower side, we will recheck it and replace it because that will cause a problem with homocysteine. I was going to give the patient a combination of aspirin and Plavix, but she just had a vertebroplasty yesterday. I am not sure whether radiologist feels comfortable with that or not. I will try to get clearance from them before doing that if I can get hold of them. At one time, her B12 was on the lower side, we will recheck it and replace it because that will cause a problem with homocysteine. I was going to give the patient a combination of aspirin and Plavix, but she just had a vertebroplasty yesterday. I am not sure whether radiologist feels comfortable with that or not. I will try to get clearance from them before doing that if I can get hold of them. Thank you very much for this referral. By: 1558 0206 Hay Thompson MD /nt
[~2019-05-05 11:43] MED LIST changes: -ADULT LOW DOSE81 MG PO; -PLAVIX 75 MG TA75 MG PO
[2019-05-05 11:55] VITALS: BP 155/83
[2019-05-05 12:49] LABS: BASOPHILS 0.6 % (0.0-2.0); EOSINOPHILS 2.3 % (0.0-3.0); HEMATOCRIT 40.6 % (37.0-47.0); HEMOGLOBIN 13.2 gm/dL (12.0-15.0); LYMPHOCYTES 14.3 % (24.0-44.0); MCH 33.8 pg (26.0-34.0); MCHC 32.6 g/dL (28.0-37.0); MCV 103.8 fL (80.0-100.0); MONOCYTES 6.4 % (1.0-8.0); PLATELET COUNT 171 thou/uL (150-400); POLYS 76.4 % (36.0-66.0); RBC 3.91 mil/uL (4.20-5.00); RDW 14.7 % (10.5-14.5); WBC 6.6 thou/uL (4.0-11.0)
[2019-05-05 12:58] LABS: CREATININE 1.3 mg/dL (0.6-1.0); POTASSIUM 4.1 mmol/L (3.5-5.1)
[2019-05-05 13:04] LABS: APTT 25.4 Seconds (24.5-32.8); PROTIME 10.7 Seconds (9.3-11.4)
[2019-05-05 13:09] LABS: ALBUMIN 3.6 g/dL (3.4-5.0); MAGNESIUM 1.5 mg/dL (1.8-2.4); TOTAL BILIRUBIN 0.5 mg/dL (<0.1-1.0); TOTAL PROTEIN 6.5 g/dL (6.4-8.2); TROPONIN-I 0.23 ng/mL (<0.06)
[2019-05-05] MEDS ORDERED: FLOMAX0.4 MG PO (14:42)
[2019-05-05 14:52] VITALS: BP 121/58
[2019-05-05 15:03] VITALS: BP 136/68
[2019-05-05 15:29] VITALS: BP 128/57
[2019-05-05 19:31] VITALS: BP 126/68
[2019-05-06 04:06] LABS: GLYCOHEMOGLOBIN (HGB A1C) 5.3 % (4.8-5.6)
[2019-05-06 04:20] VITALS: BP 127/54
[2019-05-06 05:40] LABS: ABSOLUTE NEUTROPHILS 3.7 thou/uL (1.4-8.2); BASOPHILS 0.4 % (0.0-2.0); EOSINOPHILS 4.9 % (0.0-3.0); HEMATOCRIT 37.3 % (37.0-47.0); HEMOGLOBIN 12.1 gm/dL (12.0-15.0); LYMPHOCYTES 21.6 % (24.0-44.0); MCH 33.9 pg (26.0-34.0); MCHC 32.4 g/dL (28.0-37.0); MCV 104.5 fL (80.0-100.0); MONOCYTES 8.5 % (1.0-8.0); PLATELET COUNT 175 thou/uL (150-400); POLYS 64.6 % (36.0-66.0); RBC 3.57 mil/uL (4.20-5.00); RDW 14.2 % (10.5-14.5); WBC 5.7 thou/uL (4.0-11.0)
[2019-05-06 05:59] LABS: ANION GAP 9 mmol/L (7-16); BUN 11 mg/dL (7-18); CALCIUM 8.9 mg/dL (8.5-10.1); CHLORIDE 107 mmol/L (98-107); CHOLESTEROL 169 mg/dL (<200); CO2 25 mmol/L (21-32); CREATININE 1.2 mg/dL (0.6-1.0); GLUCOSE 74 mg/dL (74-106); HDL CHOLESTEROL 61 mg/dL (>40); LDL CHOLESTEROL 89 mg/dL (<100); MAGNESIUM 1.5 mg/dL (1.8-2.4); POTASSIUM 3.8 mmol/L (3.5-5.1); SODIUM 141 mmol/L (136-145); TC:HDL 2.8 Ratio (Not establshd); TRIGLYCERIDE 97 mg/dL (<150); TROPONIN-I 0.28 ng/mL (<0.06); VLDL 19 mg/dL (<40)
[2019-05-06 08:00] VITALS: BP 118/64
--- NOTE | 2019-05-06 08:12 | HC ---
[facility] [place] [address] CONSULTATION Name: JOLIE ARENAS Room #: 203-P ADM IN M.R.#: [id number] Admission: 05/05/19 Attend Phys: Anil Saenz MD Discharge: Date of : 43 Report #: [id number] THIS REPORT FOR: //name// CC: FAM unknown Anil Saenz DATE OF SERVICE: 05/05/2019 CARDIOLOGY CONSULTATION INDICATION: Troponin elevation. HISTORY OF PRESENT ILLNESS: This is a pleasant 74-year-old female with a history of COPD, peripheral vascular disease, aortic stenosis, presenting with slurred speech. She did undergo an outpatient vertebroplasty yesterday. The patient reports that she woke up this morning and had issues with her speech. She was unable to get her words out. Her speech pattern was slow and slurred. The patient denies any chest pains, fever, nausea or diarrhea. She does note some dyspnea, she has a history of COPD and lung cancer. PAST MEDICAL HISTORY: History of COPD, lung cancer, status post radiation therapy and chemotherapy, unable to perform surgery. History of moderate aortic stenosis from an echo in December 2018 revealing normal LV systolic function. History of peripheral vascular disease with multiple peripheral procedures including right femoral endarterectomy this past December. History of hypertension, carotid artery disease, hypercholesterolemia, statin intolerance. Cardiac catheterization performed in October 2017 revealed normal coronary vasculature. ALLERGIES: Include STATINS, NANCY INHIBITORS, ATIVAN, HALDOL, ANTIBIOTICS. MEDICATIONS: At home include albuterol inhaler, Xanax, Zetia, Advair, Plaquenil, Medrol Nicorette gum, Protonix and Toprol-XL 50 mg. SOCIAL HISTORY: Negative for tobacco use. FAMILY HISTORY: Negative for premature CAD. REVIEW OF SYSTEMS: A full 10-point review of systems performed. Only the pertinent positives and negatives are described in the HPI. PHYSICAL EXAMINATION: VITAL SIGNS: Blood pressure is 130/60, heart rate is 84 beats per minute. GENERAL APPEARANCE: This is a thin female in no acute distress. HEENT: Normocephalic. Oral mucosa moist. NECK: Supple. [facility] [address] [place] [address] CONSULTATION Name: AVELINOEARLEJOLIE CABRERA Room #: 203-P [facility] IN ..#: [id number] Admission: 05/05/19 Attend Phys: Anil Saenz MD Discharge: Date of : 43 Report #: [id number] LUNGS: Diminished breath sounds. No crackles, no rales. CARDIAC: S1, S2 positive, 2/6 systolic murmur. ABDOMEN: Soft, nontender. EXTREMITIES: No cyanosis, no edema. DIAGNOSTIC DATA: ECG reveals sinus rhythm, right bundle-branch block. MRI reveals left moser radiata, small subacute lacunar infarction. LABORATORY VALUES: White count 6.6, hemoglobin 13.2. Creatinine is 1.3. Troponin 0.23. ASSESSMENT AND PLAN: 1. Cerebrovascular accident/slurred speech. Continue neurologic evaluation. 2. Troponin elevation, the significance is unclear at this time. She reports no episodes of chest pain and the ECG does not show any acute ST segment changes. Cardiac catheterization last year did not reveal any significant coronary artery disease. Continue on aspirin at this time. Repeat troponin level, may need an ischemic evaluation once her neurologic status is stabilized. 3. Aortic stenosis, moderate in severity. Stable with no complaints of orthopnea. 4. Hypercholesterolemia, intolerant to statins. Continue with Zetia. 5. Peripheral vascular disease. Offers no complaints of claudication at this time. <ELECTRONICALLY SIGNED> By: Carlos Montiel MD 05/06/19 0812 1529 0135 Carlos Montiel MD /nt
--- NOTE | 2019-05-06 09:08 | NUR ---
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
--- NOTE | 2019-05-06 10:50 | EKG ---
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
[2019-05-06 12:40] VITALS: BP 151/80
[2019-05-06] MEDS ORDERED: ADULT LOW DOSE81 MG PO (12:40)
[2019-05-06] MEDS ORDERED: PLAVIX 75 MG TA75 MG PO (12:42)
[2019-05-06 15:18] VITALS: BP 151/80
--- NOTE | 2019-05-06 16:32 | NUR ---
PT VSS. SINUS RHYTHM ON THE MONITOR. COMPLAINS OF BACK PAIN. PRN TYLENOL GIVEN. SCORES 0 ON NIH STROKE SCALE. PT STATES SHE FEELS LIKE HER NORMAL SELF. SEEN BY RAMYA. OKAY TO DISCHARGE ON PLAVIX AND ASPIRIN. TELE MONITOR OFF. IV DISCONTINUED. DISCHARGE INSTRUCTIONS REVIEWED WITH PATIENT AND SPOUSE. AWARE OF FOLLOW UP APPOINTMENTS. NEW SCRIPTS SENT TO [facility]. PT VOICED NO QUESTIONS OR CONCERNS.
--- NOTE | 2019-05-07 07:15 | NUR ---
RECEIVED OT ORDER, PATIENT DISCHARGED PRIOR TO OT EVALUATION BEING INITIATED.
== END 2019-05-06 16:14 | disposition home or self-care (01) | DRG 65 ==
LOC: ER 11:43 → EROBS 14:38 → 2N 14:40
PROVIDERS: Emergency Medicine; Nurse Practitioner; Psychiatry & Neurology Neuromuscular Medicine; ADMIT Hospitalist
DX: I63.9 Cerebral infarction, unspecified (principal); C34.90 Malignant neoplasm of unspecified part of unspecified bronchus or lung; N17.9 Acute kidney failure, unspecified; F41.9 Anxiety disorder, unspecified; I48.91 Unspecified atrial fibrillation; R05 Cough; E78.5 Hyperlipidemia, unspecified; M35.00 Sjogren syndrome, unspecified; J45.909 Unspecified asthma, uncomplicated; J44.9 Chronic obstructive pulmonary disease, unspecified; L90.0 Lichen sclerosus et atrophicus; F32.9 Major depressive disorder, single episode, unspecified; K22.70 Barrett's esophagus without dysplasia; K21.9 Gastro-esophageal reflux disease without esophagitis; I45.81 Long QT syndrome; R79.89 Other specified abnormal findings of blood chemistry; E83.42 Hypomagnesemia; I73.9 Peripheral vascular disease, unspecified; I77.89 Other specified disorders of arteries and arterioles; I12.9 Hypertensive chronic kidney disease with stage 1 through stage 4 chronic kidney disease, or unspecified chronic kidney disease; N18.9 Chronic kidney disease, unspecified; E78.00 Pure hypercholesterolemia, unspecified; I35.0 Nonrheumatic aortic (valve) stenosis; Z87.440 Personal history of urinary (tract) infections; Z79.01 Long term (current) use of anticoagulants; Z90.89 Acquired absence of other organs; Z90.49 Acquired absence of other specified parts of digestive tract; Z95.820 Peripheral vascular angioplasty status with implants and grafts; Z98.42 Cataract extraction status, left eye; Z98.41 Cataract extraction status, right eye; Z88.1 Allergy status to other antibiotic agents; Z88.0 Allergy status to penicillin; Z88.8 Allergy status to other drugs, medicaments and biological substances; Z87.891 Personal history of nicotine dependence; Z79.899 Other long term (current) drug therapy; Z85.3 Personal history of malignant neoplasm of breast
CPT/HCPCS: 10081

== ENCOUNTER → 2019-05-20 | Outpatient (CLI) | payer OTHER, BC ==
[~2019-05-20] MED LIST changes: +ADULT LOW DOSE81 MG PO; +PLAVIX 75 MG TA75 MG PO
== END | disposition home or self-care (01) ==
LOC: SJCVC 10:17
DX: I25.10 Atherosclerotic heart disease of native coronary artery without angina pectoris (principal); I45.10 Unspecified right bundle-branch block; R94.31 Abnormal electrocardiogram [ECG] [EKG]; E78.00 Pure hypercholesterolemia, unspecified; I63.9 Cerebral infarction, unspecified; M35.00 Sjogren syndrome, unspecified; I73.9 Peripheral vascular disease, unspecified; I10 Essential (primary) hypertension; I65.23 Occlusion and stenosis of bilateral carotid arteries; K21.9 Gastro-esophageal reflux disease without esophagitis; F17.200 Nicotine dependence, unspecified, uncomplicated; Z90.49 Acquired absence of other specified parts of digestive tract; Z90.09 Acquired absence of other part of head and neck; Z82.49 Family history of ischemic heart disease and other diseases of the circulatory system; Z79.82 Long term (current) use of aspirin; Z79.899 Other long term (current) drug therapy

== ENCOUNTER → 2019-06-03 | Outpatient (CLI) | payer OTHER, BC | LOC: RAD 11:23 | DX: M43.8X4 Other specified deforming dorsopathies, thoracic region (principal); M95.4 Acquired deformity of chest and rib ==

== ENCOUNTER → 2019-06-24 | Outpatient (CLI) | payer OTHER, BC | LOC: SJCVC 11:44 | DX: I25.10 Atherosclerotic heart disease of native coronary artery without angina pectoris (principal); I65.23 Occlusion and stenosis of bilateral carotid arteries; J44.0 Chronic obstructive pulmonary disease with (acute) lower respiratory infection; I73.9 Peripheral vascular disease, unspecified; I10 Essential (primary) hypertension; E78.00 Pure hypercholesterolemia, unspecified; K21.9 Gastro-esophageal reflux disease without esophagitis; Z90.49 Acquired absence of other specified parts of digestive tract; Z87.891 Personal history of nicotine dependence; Z79.899 Other long term (current) drug therapy; Z86.73 Personal history of transient ischemic attack (TIA), and cerebral infarction without residual deficits ==

== ENCOUNTER 2019-09-13 11:06 | Inpatient (IN) | payer OTHER, BC ==
[~2019-09-13] VITALS: Ht 154.9 cm; Wt 45.4 kg
[2019-09-13 11:10] VITALS: BP 77/41
[2019-09-13] MEDS ORDERED: ZETIA10 MG PO (11:27)
[2019-09-13 12:05] LABS: ABSOLUTE NEUTROPHILS 7.8 thou/uL (1.4-8.2); BASOPHILS 0.3 % (0.0-2.0); EOSINOPHILS 0.5 % (0.0-3.0); HEMATOCRIT 30.7 % (37.0-47.0); HEMOGLOBIN 10.3 gm/dL (12.0-15.0); MCH 34.9 pg (26.0-34.0); MCHC 33.6 g/dL (28.0-37.0); MONOCYTES 5.7 % (1.0-8.0); PLATELET COUNT 232 thou/uL (150-400); POLYS 83.5 % (36.0-66.0); RBC 2.95 mil/uL (4.20-5.00); RDW 13.4 % (10.5-14.5); WBC 9.3 thou/uL (4.0-11.0)
[2019-09-13 12:21] LABS: ANION GAP 6 mmol/L (7-16); BUN 49 mg/dL (7-18); CALCIUM 8.8 mg/dL (8.5-10.1); CHLORIDE 104 mmol/L (98-107); CO2 29 mmol/L (21-32); CREATININE 1.2 mg/dL (0.6-1.0); GLUCOSE 82 mg/dL (74-106); SODIUM 139 mmol/L (136-145)
[2019-09-13 12:24] LABS: APTT 24.4 Seconds (24.5-32.8); INR 1.1; PROTIME 11.6 Seconds (9.3-11.4)
[2019-09-13 12:31] LABS: SGOT 18 U/L (15-37); SGPT 17 U/L (30-65); TOTAL BILIRUBIN 0.7 mg/dL (<0.1-1.0); TOTAL PROTEIN 5.8 g/dL (6.4-8.2); TROPONIN-I <0.06 ng/mL (<0.06)
[2019-09-13 13:30] VITALS: BP 114/41
[2019-09-13 15:14] VITALS: BP 114/41
[2019-09-13 15:40] VITALS: BP 118/55
[2019-09-13 18:14] LABS: HEMATOCRIT 26.9 % (37.0-47.0); HEMOGLOBIN 8.9 gm/dL (12.0-15.0)
[2019-09-13 20:47] VITALS: BP 127/58
[2019-09-14 00:30] VITALS: BP 118/53
[2019-09-14 06:07] VITALS: BP 116/50
[2019-09-14 08:00] VITALS: BP 97/55
--- NOTE | 2019-09-14 08:36 | EKG ---
[facility] [place] [address] ELECTROCARDIOGRAM REPORT Name: JOLIE ARENAS Room #: 216-P ADM IN M.R.#: [id number] Admission: 09/13/19 Attend Phys: Dipak Cloon MD Discharge: Date of : 43 Report #: [id number] THIS REPORT FOR: cc: Konstantin Uribe MD, Stanley P. MD Lundgren, Craig H. MD [facility] ~ THIS REPORT FOR: //name// [facility] ED Test Date: 2019-09-13 Test Time: 12:04:36 Pat Name: JOLIE ARENAS Department: Room: 216 Gender: F Air Pumper: JUANY : 1945 Requested By: Jackeline Hunt Order Number: [id number] MD: Manas Hammer Measurements Intervals [place] Rate: 86 P: 70 HI: 153 QRS: 36 QRSD: 115 T: -54 QT: 371 QTc: 444 Interpretive Statements Sinus rhythm Incomplete right bundle branch block ST and T wave abnormality, consider lateral ischemia Compared to ECG 05/05/2019 12:56:[address] segment abnormality is more pronounced Electronically Signed On 09-14-2019 8:34:41 CDT by Manas Hammer [email or web address] <ELECTRONICALLY SIGNED> By: Manas Hammer MD, FAC 09/14/19 0834 1204 1204 Manas Hammer MD, [facility] /EPI
[2019-09-14 11:00] VITALS: BP 109/70
[2019-09-14 11:29] LABS: HEMATOCRIT 25.7 % (37.0-47.0); HEMOGLOBIN 8.8 gm/dL (12.0-15.0); MCH 35.1 pg (26.0-34.0); MCHC 34.1 g/dL (28.0-37.0); MCV 102.8 fL (80.0-100.0); RBC 2.5 mil/uL (4.20-5.00); RDW 13.4 % (10.5-14.5); WBC 6.7 thou/uL (4.0-11.0)
[2019-09-14 16:00] VITALS: BP 114/62
--- NOTE | 2019-09-14 16:51 | P ---
[facility] [place] [address] PROCEDURE REPORT Name: JOLIE ARENAS Room #: 216-P ADM IN M.R.#: [id number] Admission: 09/13/19 Attend Phys: Dipak Colon MD Discharge: Date of : 44 Report #: [id number] THIS REPORT FOR: cc: Konstantin Uribe MD, Stanley P. MD Thesing, John A. MD ~ CC: Dipak Moore [facility] Konstantin Uribe MD BRIEF HISTORY: The patient is a 74-year-old woman who presented with hematemesis and evidence of GI bleeding. Urgent upper endoscopy was completed yesterday and a large amount of clot was seen in the stomach and the exact site of bleeding was not clearly identified. Due to the fact that large clot obscured much of the stomach, repeat upper endoscopy was recommended. She has done well since yesterday without any further hematemesis. It is also noted she has been on aspirin and Plavix. She has had a long history of peptic type symptoms, but she does not take her pantoprazole because she is concerned about metabolic bone disease. PREOPERATIVE DIAGNOSIS: Upper gastrointestinal bleeding. POSTOPERATIVE DIAGNOSES: 1. Large benign appearing ulcer, gastroesophageal junction. 2. Small hiatus hernia. 3. Diffuse chronic appearing gastritis with nodular changes in the body of the stomach. 4. Multiple scars body of the stomach consistent with previous ulcer disease. FINDINGS: Prior to propofol sedation, procedure of upper endoscopy was reviewed with the patient as well as potential risks and its complications. She indicates she understands and desires to proceed. DESCRIPTION OF PROCEDURE: With the patient in left lateral decubitus position, the Olympus video endoscope was inserted in the cervical esophagus under direct vision without difficulty. Examination of this organ through its entire length revealed normal esophageal mucosa down the squamocolumnar junction. At the squamocolumnar junction, there was a benign appearing ulcer. It involved about one-half the circumference of the squamocolumnar junction. It was about 2 cm in length at greatest dimension. It was flat. No clots, exposed vessels, red spots or black spots were seen. In addition, there was a small hiatus hernia that was about 2-3 cm in greatest dimension. The mucosa and hernia was unremarkable. Scope was advanced in the stomach, was examined on end view as well as retroflexed views. There was pattern of a diffuse gastritis with patchy erythema in the antrum and body of stomach. There were some nodular changes in the body of the stomach. In addition, there were multiple old scars in the body [address] [address] PROCEDURE REPORT Name: JOLIE ARENAS Room #: 216-P [facility] IN M.R.#: [id number] Admission: 09/13/19 Attend Phys: Dipak Colon MD Discharge: Date of : 44 Report #: [id number] of the stomach consistent with prior ulcer disease. Active ulcer craters were not seen. We examined the stomach on end views as well as retroflexed views on multiple passes of the scope. An occasional melina of old blood was seen, but an active ulcer crater, bleeding lesion, potential bleeding lesion or bright red blood was not seen. Biopsies obtained of the gastritis to evaluate for H. pylori. The pylorus, duodenal bulb, and postbulbar duodenal sweep down and third portion were inspected and noted to be unremarkable. At that point, the scope was slowly withdrawn and careful circumferential views confirmed the above findings. The patient tolerated the procedure well. DISPOSITION: The patient with GI bleeding. Large amount of blood within the stomach yesterday which obscured adequate views of the stomach. An active site of bleeding or potential site of bleeding was not identified today. Presumably, the patient's bleeding was from her ulcer at the gastroesophageal junction. Would continue PPI at this point in time. Would recommend repeating upper endoscopy in 8 weeks to ensure healing of the ulcer. The patient has had a long history of peptic type symptoms and in view what appeared to be multiple ulcers in the stomach in the past as well as an active ulcer at the GE junction, long-term use of PPI may be indicated in this patient. <ELECTRONICALLY SIGNED> By: Will Betts MD 09/14/19 1651 0952 1402 Will Betts MD /nt
[2019-09-14 20:25] VITALS: BP 133/64
[2019-09-15 05:24] VITALS: BP 133/73
--- NOTE | 2019-09-15 08:00 | EKG ---
[facility] [place] [address] ELECTROCARDIOGRAM REPORT Name: JOLIE ARENAS Room #: 216-P ADM IN M.R.#: [id number] Admission: 09/13/19 Attend Phys: Dipak Colon MD Discharge: Date of : 44 Report #: [id number] THIS REPORT FOR: cc: Konstantin Uribe MD, Stanley P. 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 : 1945 Requested By: Will Betts Order Number: [id number] MD: Manas Hammer Measurements Intervals [place] Rate: 89 P: 65 NH: 159 QRS: 52 QRSD: 123 T: -3 QT: 408 QTc: 497 Interpretive Statements Sinus rhythm Incomplete right bundle branch block Compared to ECG 09/13/2019 12:04:36 ST segment abnormality is less pronounced Electronically Signed On 09-15-2019 7:58:48 CDT by Manas Hammer [email or web address] <ELECTRONICALLY SIGNED> By: Manas Hammer MD, [facility] 09/15/19 0758 0901 Manas Hammer MD, [facility] /EPI
[2019-09-15 08:23] VITALS: BP 132/91
[2019-09-15 09:18] LABS: HEMATOCRIT 23.6 % (37.0-47.0)
[2019-09-15 12:02] VITALS: BP 142/70
[2019-09-15 14:03] LABS: HEMOGLOBIN 7.9 gm/dL (12.0-15.0)
--- NOTE | 2019-09-15 14:08 | PATH ---
[facility] [address] [place] [address] PATHOLOGY RPT PROCEDURE Name: SUGEYSAMANTHA ORELLANA Room #: 216-P ADM IN M.R.#: [id number] Admission: 09/13/19 Date of : 43 Discharge: Report #: [id number] Path Case #: [id number] [facility] Accession Number: [id number] . 01 Material submitted: . stomach - GASTRIC BX . 01 Clinician provided ICD-10: 3 . 01 Clinical history: . Pre-op diagnosis: Upper GI bleed Post-op diagnosis: Esophageal ulcer; gastritis; hiatus hernia . 02 Diagnosis: Gastric mucosa, gastric R/O H. pylori, endoscopic biopsy: - Mild reactive gastropathy. - Negative for intestinal metaplasia or atrophy. - Negative for Helicobacter pylori (properly controlled immunohistochemical stain performed). . (IUV:mendoza; 09/15/2019) QMS 09/15/2019 1248 Local . 02 Electronically signed: . Luly Nava MD, Pathologist NPI- [id number] . 01 Gross description: . The specimen is received in formalin, labeled "Samantha Gonzalez, gastric biopsy, R/O H. pylori". Received are five segments of pale swann soft tissue ranging in size from 0.2 to 0.4 cm in maximum dimensions. The specimen is submitted entirely in cassette A1. (CAA; 09/14/2019) QA/QA 09/15/2019 1246 Local . 02 Pathologist provided ICD-10: K31.9 . 02 CPT . 051512, N03686 Specimen Comment: A courtesy copy of this report has been sent to [phone] Specimen Comment: Report sent to Performed at: 01 [facility] [address] [facility] [address], [place] [id number] MD Tato Burnett MD Phone: [phone] [email or web address] [address] PATHOLOGY RPT PROCEDURE Name: SAMANTHA GONZALEZ Room #: 216-P [facility] IN M.R.#: [id number] Admission: 09/13/19 Date of : 43 Discharge: Report #: [id number] Path Case #: [id number] Performed at: [address] [id number] MD Luly Nava MD Phone: [phone]
[2019-09-15 16:16] VITALS: BP 145/79
[2019-09-15 21:06] VITALS: BP 140/76
[2019-09-16 02:19] LABS: HEMATOCRIT 23.2 % (37.0-47.0); HEMOGLOBIN 7.9 gm/dL (12.0-15.0)
[2019-09-16 04:45] VITALS: BP 142/75
[2019-09-16 08:25] VITALS: BP 159/78
[2019-09-16 09:29] VITALS: BP 179/83
[2019-09-16 11:30] VITALS: BP 151/92
[2019-09-16 14:11] LABS: HEMATOCRIT 25.2 % (37.0-47.0); HEMOGLOBIN 8.6 gm/dL (12.0-15.0)
[2019-09-16 16:24] VITALS: BP 142/96
[2019-09-16 20:56] VITALS: BP 140/76
[2019-09-17 04:45] VITALS: BP 121/65
[2019-09-17 06:49] LABS: CALCIUM 7.6 mg/dL (8.5-10.1); CREATININE 0.9 mg/dL (0.6-1.0); POTASSIUM 3.2 mmol/L (3.5-5.1)
[2019-09-17 07:53] VITALS: BP 116/65
[2019-09-17 13:08] VITALS: BP 111/71
[2019-09-17 15:55] VITALS: BP 125/72
[2019-09-17 20:15] VITALS: BP 135/65; BP 99/54
[2019-09-18 04:45] VITALS: BP 121/60
[2019-09-18 05:06] LABS: HEMATOCRIT 26.5 % (37.0-47.0); HEMOGLOBIN 8.9 gm/dL (12.0-15.0); MCH 34.8 pg (26.0-34.0); MCHC 33.5 g/dL (28.0-37.0); MCV 103.9 fL (80.0-100.0); RBC 2.55 mil/uL (4.20-5.00); RDW 13.5 % (10.5-14.5); WBC 9.7 thou/uL (4.0-11.0)
--- NOTE | 2019-09-18 08:22 | O ---
[facility] [place] [address] OPERATIVE REPORT Name: JOLIE ARENAS Room #: 216-P ADM IN M.Magdaleno.#: [id number] Admission: 09/13/19 Attend Phys: Dipak Colon MD Discharge: Date of : 43 Report #: [id number] THIS REPORT FOR: cc: Konstantin Uribe MD, Stanley P. MD Brown, Randal L. MD ~ CC: Dipak Uribe DATE OF SERVICE: 09/13/2019 SURGEON: Oscar Garrison MD PREOPERATIVE DIAGNOSIS: Upper gastrointestinal hemorrhage. POSTOPERATIVE DIAGNOSIS: See below. ANESTHESIA USED: See anesthesia notes. NAME OF PROCEDURE PERFORMED: Esophagogastroduodenoscopy. INDICATION FOR PROCEDURE: As above. FINDINGS: 1. Fundic clot as described. 2. Evidence of recent GI bleed as described. 3. No identifiable source on this exam. DESCRIPTION OF PROCEDURE: The risks and benefits of the procedure were explained in detail prior to anesthesia. The patient was placed in left lateral decubitus position and the Inspirato video endoscope was advanced into the oropharynx, esophagus, stomach, into the third portion of the duodenum as an Olympus endoscope. A slow inspection of the upper gastrointestinal mucosa was obtained upon slow withdrawal of the endoscope. There was evidence of altered blood throughout the entire stomach and duodenum in the distal esophagus. There was a large fundic clot noted and associated fluid collection in the fundus of the stomach and the dependent portion in the left lateral decubitus position. The visualized inspected areas of the duodenum, pylorus, antrum, cardia, were all cleared for acute or recent sources for bleeding. There is an approximately 20% of the stomach that could not be evaluated because of retained blood clot and fluid despite switching to a therapeutic endoscope. No active bleeding was noted. The rest of the gastrointestinal mucosa was rinsed to exclude any mucosal abnormality. At the GE junction, there was evidence of erosive esophagitis grade 2 and a superficial erosion with no stigmata of recent hemorrhage. 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 The rest of esophagus appeared normal in appearance. The patient tolerated the procedure well and was discharged to recovery. IMPRESSION: 1. Recent gastrointestinal bleed as described. 2. Unclear source. 3. Fundic clot as described. 4. Incomplete evaluation of the stomach. PLAN: 1. Observe for recurrent bleeding. 2. Repeat EGD tomorrow after promotility agents to move the clot and fluid out of the fundus. 3. IV PPI therapy. See orders. <ELECTRONICALLY SIGNED> By: Eliceo Lugo MD 09/18/19 0822 1445 2030 Oscar Garrison MD /nt
--- NOTE | 2019-09-18 08:22 | HC ---
[facility] [place] [address] CONSULTATION Name: JOLIE ARENAS Room #: 216-P ADM IN M.Magdaleno.#: [id number] Admission: 09/13/19 Attend Phys: Dipak Colon MD Discharge: Date of : 44 Report #: [id number] THIS REPORT FOR: cc: Konstantin Uribe MD,Oscar Davila MD, MD ~ CC: Dipak Uribe HISTORY OF PRESENT ILLNESS: The patient is a very pleasant 74-year-old female who I have been asked to see for hematemesis. Her medical history is well outlined in the chart, that includes history of lung cancer, status post chemoradiation, hypertension, hyperlipidemia, Sjogren's, asthma, COPD, pleural effusions, lichen sclerosus, iliac stents, anxiety, panic attacks, depression, renal insufficiency, Kiser's, GERD, cataract surgery. She had cholecystectomy. Denies significant alcohol or tobacco consumption currently. REVIEW OF SYSTEMS: Negative for weight loss, weakness or fatigue. She denies head, eyes, ears, nose or throat complaints. Denies chest pain, chest palpitation, chest pressure, cough, shortness of breath, wheezing, genitourinary, musculoskeletal or neuropsychiatric complaints otherwise. PHYSICAL EXAMINATION: VITAL SIGNS: Afebrile. Vital signs stable. HEENT: Nonicteric. NECK: No JVD, thyromegaly or bruits. CARDIOVASCULAR: Regular. LUNGS: Clear. ABDOMEN: Soft, nondistended. No stigmata of chronic liver disease. PERTINENT LABORATORY DATA: Include white count 9.3, hemoglobin 10.3, MCV 104, RDW 13.4, INR 1.1. Chemistry: BUN 49, creatinine 1.2. Liver tests normal. Albumin normal. ASSESSMENT: In summary, the patient presents with acute upper GI bleed. She is on Plavix and baby aspirin daily as well as many other medications. She denies NSAIDs. She has had a remote upper endoscopy. We will proceed with upper endoscopy today to exclude significant pathology, ongoing bleeding, etc. I appreciate the opportunity to participate in her care. <ELECTRONICALLY SIGNED> By: Eliceo Lugo MD 09/18/19 0822 1419 1935 Oscar Garrison MD /nt
[2019-09-18 08:25] VITALS: BP 116/56
[2019-09-18 12:18] LABS: URINE BILIRUBIN NEGATIVE (Negative); URINE BLOOD 3+ (Negative); URINE CLARITY CLOUDY; URINE GLUCOSE-RANDOM* NEGATIVE (Negative); URINE KETONES NEGATIVE (Negative); URINE LEUKOCYTES-REFLEX 3+ (Negative); URINE NITRITE-REFLEX POSITIVE (Negative); URINE PROTEIN (DIPSTICK) 3+ (Negative); URINE SPECIFIC GRAVITY 1.015 (1.005-1.035); URINE UROBILINOGEN 0.2 E.U./dl (0.2-1.0)
[2019-09-18 12:19] LABS: URINE COLOR AMBER
[2019-09-18 12:24] LABS: BACTERIA-REFLEX >30 Many /HPF (None Seen); CASTS None Seen /LPF (None Seen); CRYSTALS None Seen /LPF (None Seen); SQUAMOUS 0-3 Few /LPF (0-3); URINE WBC-REFLEX >25 Many /HPF (0-5)
[2019-09-18 12:43] VITALS: BP 116/66
[2019-09-18] MEDS ORDERED: PANTOPRAZOLE SO40 M1 PO (13:40)
[2019-09-18] MEDS ORDERED: MEGESTROL ACETA40 MG PO (13:40)
[2019-09-18] MEDS ORDERED: BACTRIM DS TAB1 EACH PO (13:40)
[2019-09-18] MEDS ORDERED: SENNA-TIME S T1 EACH PO (13:40)
[2019-09-18] MEDS ORDERED: XANAX1 MG PO (13:40)
[2019-09-18 14:05] LABS: ALBUMIN 2.8 g/dL (3.4-5.0); CALCIUM 7.6 mg/dL (8.5-10.1); CREATININE 1.1 mg/dL (0.6-1.0); POTASSIUM 4.4 mmol/L (3.5-5.1); TOTAL BILIRUBIN 0.3 mg/dL (<0.1-1.0); TOTAL PROTEIN 5.2 g/dL (6.4-8.2)
== END 2019-09-18 16:24 | DRG 377 ==
LOC: ER 11:06 → EROBS 13:05 → 2N 13:05
PROVIDERS: Emergency Medicine Emergency Medical Services; Hospitalist; Internal Medicine Gastroenterology; Nurse Practitioner Family; Specialist; ADMIT Internal Medicine
PROC: 0DJ08ZZ Inspection of Upper Intestinal Tract, Via Natural or Artificial Opening Endoscopic (ICD-10-PCS; principal; 2019-09-13)
PROC: 0DB68ZX Excision of Stomach, Via Natural or Artificial Opening Endoscopic, Diagnostic (ICD-10-PCS; 2019-09-14)
DX: K29.71 Gastritis, unspecified, with bleeding (principal); G93.41 Metabolic encephalopathy; J96.11 Chronic respiratory failure with hypoxia; D62 Acute posthemorrhagic anemia; N39.0 Urinary tract infection, site not specified; E44.0 Moderate protein-calorie malnutrition; Z68.1 Body mass index [BMI] 19.9 or less, adult; I95.89 Other hypotension; R63.4 Abnormal weight loss; E78.5 Hyperlipidemia, unspecified; M35.00 Sjogren syndrome, unspecified; J45.909 Unspecified asthma, uncomplicated; J44.9 Chronic obstructive pulmonary disease, unspecified; F41.9 Anxiety disorder, unspecified; F32.9 Major depressive disorder, single episode, unspecified; I73.9 Peripheral vascular disease, unspecified; K22.70 Barrett's esophagus without dysplasia; K21.9 Gastro-esophageal reflux disease without esophagitis; K44.9 Diaphragmatic hernia without obstruction or gangrene; N18.2 Chronic kidney disease, stage 2 (mild); G47.00 Insomnia, unspecified; K59.00 Constipation, unspecified; I12.9 Hypertensive chronic kidney disease with stage 1 through stage 4 chronic kidney disease, or unspecified chronic kidney disease; K27.4 Chronic or unspecified peptic ulcer, site unspecified, with hemorrhage; E87.6 Hypokalemia; E87.8 Other disorders of electrolyte and fluid balance, not elsewhere classified; F41.1 Generalized anxiety disorder; Z20.828 Contact with and (suspected) exposure to other viral communicable diseases; Z85.118 Personal history of other malignant neoplasm of bronchus and lung; Z95.820 Peripheral vascular angioplasty status with implants and grafts; Z98.42 Cataract extraction status, left eye; Z98.41 Cataract extraction status, right eye; Z88.0 Allergy status to penicillin; Z88.8 Allergy status to other drugs, medicaments and biological substances; Z87.891 Personal history of nicotine dependence
CPT/HCPCS: 10081; 62110; 62900

== ENCOUNTER 2019-09-18 14:11 | Inpatient (IN) | payer OTHER, BC ==
[~2019-09-18] VITALS: Ht 154.9 cm; Wt 43.5 kg
--- NOTE | ~2019-09-18 | H ---
[facility] [place] [address] HISTORY AND PHYSICAL Name: JOLIE ARENAS Room #: 513-P ADM IN M.R.#: [id number] Admission: 09/18/19 Attend Phys: Negro Lomas MD Discharge: Date of : 43 Report #: [id number] THIS REPORT FOR: cc: Konstantin Uribe MD, Stanley P. MD Smithson, David G. MD ~ CC: Negro Uribe DATE OF SERVICE: 09/18/2019 HISTORY AND PHYSICAL/POST-ADMISSION PHYSICIAN EVALUATION HISTORY OF PRESENT ILLNESS: The patient has been admitted for acute in-hospital inpatient rehabilitation. She was noted to have an acute toxic encephalopathy. She originally was admitted to [facility] with hematemesis and blood in stool. She was started on a PPI drip, underwent an EGD by GI on 09/14/2019 noted ulcer, but no active bleeding, now on b.i.d. PPI and will need repeat EGD in 2 months. She was noted to have confusion worse than baseline. Neurology and Psychiatry were consulted. CT of the head and MRI head negative for acute process. She has history of anxiety and takes anxiety medications and sleep aids at home, possibly contributing. She was also found to have urinary tract infection. There is also report of memory decline since her chemotherapy approximately 5 years ago. The patient has had an overall functional decline and has been admitted for acute in-hospital inpatient rehabilitation. As far as past medical history, allergies, habits, and social history: Please see the full admission history and physical documentation. MEDICATIONS: See the MAR. REVIEW OF SYSTEMS: She did not offer any complaints of chest pain, shortness of breath, or abdominal discomfort. PHYSICAL EXAMINATION: GENERAL: A 74-year-old white female was seen later yesterday. VITAL SIGNS: Afebrile, vital signs are stable. HEENT: Appeared to be benign. She does have some definite latency to her responses. NEUROLOGIC: She is somewhat anxious, but easily redirectable. Appears somewhat concrete in thinking. Facies were symmetric. CHEST: Sounded clear to auscultation. CARDIOVASCULAR: Regular rate and rhythm. ABDOMEN: Bowel sounds positive, nontender. GENITOURINARY AND RECTAL: Deferred. There is no focal calf swelling. EXTREMITIES: Strength of the upper and lower extremities are probably a grade [facility] [address] [place] [address] HISTORY AND PHYSICAL Name: JOLIE ARENAS Room #: 513-P [facility].#: [id number] Admission: 09/18/19 Attend Phys: Negro Lomas MD Discharge: Date of : 43 Report #: [id number] 3+ to 4-/5. DTRs are trace to 1. She does have significant cognitive deficits noted and has been min assist with basic sit to stand and short distance ambulation. ASSESSMENT: A 74-year-old white female with the following problem list: 1. Toxic metabolic encephalopathy. 2. Upper gastrointestinal bleed with hematemesis and melanotic stool. 3. Urinary tract infection. 4. Orthostatic hypotension. 5. Acute blood loss anemia. 6. Weight loss with protein-calorie malnutrition. 7. Anxiety. 8. Sjogren's syndrome. 9. History of lung cancer, status post chemo and radiation. 10. Frequent falls. 11. Chronic obstructive pulmonary disease with asthma. 12. Early dementia. PLAN: The patient has been admitted for acute in-hospital inpatient rehabilitation. From a post-admission physician evaluation perspective, there are no relevant changes since the preadmission screening. Please see the above review of prior and current medical and functional conditions and comorbidities. Please see the patient's previous and current functional status. As far as risk of complications, the patient has multiple medical comorbidities as noted above. Initial plan of care involves the interdisciplinary acute inpatient rehabilitation program. Measurable functional goals would be for the patient to become modified independent with transfers, mobility, ADLs, cognition, communication, so that she can hopefully return back to her prior living situation. Prognosis is reasonably good with estimated length of stay probably at least 7-10 days, pending progress. Potential barriers would include her multiple medical comorbidities and decreased functional status. The patient meets diagnostic criteria for an acute in-hospital inpatient rehabilitation stay. She meets medical necessity criteria. We will have the peoples[employer] consultant physicians continue to follow. She does have the tolerance for therapies and has appropriate discharge goals back to the home setting. Please see the noted history and physical documentation. Agree with the examination findings as are noted. By: [id number] Negro Lomas MD /nt
--- NOTE | ~2019-09-18 | PLAN ---
[facility] [place] [address] REHAB UNIT PLAN OF CARE Name: JOLIE ARENAS Room #: 513-P ADM IN M.R.#: [id number] Admission: 09/18/19 Attend Phys: Negro Lomas MD Discharge: Date of : 43 Report #: [id number] THIS REPORT FOR: //name// CC: Negro Uribe DATE OF SERVICE: 09/21/2019 PROGRESS NOTE AND OVERALL FOLLOWUP NOTE SUBJECTIVE: The patient was seen back today in followup. She is in no distress. Last recorded temperature 98.3, pulse 95, respirations 20, blood pressure 95/50. She is in good spirits. No focal calf swelling. She is cooperative with her therapies. She has decreased insight as to why she is here. Transfers are contact guard assistance. Gait was 100 feet contact guard with a front-wheeled walker. In occupational therapy, lower body dressing is min assist. She is working on speech therapy as well with moderate cognitive deficits and moderate to severe memory deficits. ASSESSMENT: A 74-year-old white female with the following problem list: 1. Toxic metabolic encephalopathy. 2. Upper gastrointestinal bleed with prior hematemesis and melanotic stools. 3. Urinary tract infection. 4. History of orthostatic hypotension. 5. Acute blood loss anemia. 6. Weight loss with protein-calorie malnutrition. 7. Anxiety. 8. Sjogren's syndrome. 9. History of lung cancer, status post chemotherapy and radiation. 10. Frequent falls. 11. Chronic obstructive pulmonary disease with asthma. 12. Early dementia. PLAN: The overall plan of care is based on the preadmission screen, post-admission physician evaluation and information garnered from therapy assessments. 1. Estimated length of stay is probably at least 5-10 days pending progress. 2. Medical prognosis is reasonably good. 3. Anticipated interventions includes the interdisciplinary acute inpatient rehabilitation program. 4. Anticipated functional outcomes would be for the patient to become modified independent with transfers, mobility, ADLs at least at the walker level along with improvement in overall cognition, so she can return back to the home setting. 5. Discharge destination would be back to the home setting where she lives with family as noted. She lives with her . [place] [id number] REHAB UNIT PLAN OF CARE Name: JOLIE ARENAS Room #: 513-P [facility] IN .R.#: [id number] Admission: 09/18/19 Attend Phys: Negro Lomas MD Discharge: Date of : 43 Report #: [id number] 6. Expected therapy by discipline includes PT, OT and speech 1 hour per day each 5 days a week throughout the duration of the acute inpatient rehabilitation stay. By: [id number] Negro Lomas MD /PMT
[~2019-09-18 14:11] MED LIST changes: +BACTRIM DS TAB1 EACH PO; +MEGESTROL ACETA40 MG PO; +PANTOPRAZOLE SO40 M1 PO; +SENNA-TIME S T1 EACH PO
[2019-09-18 17:21] VITALS: BP 120/40
--- NOTE | 2019-09-18 19:57 | NUR ---
ADMITTED TO ROOM 513 AT 1700 FOR ACUTE TOXIC ENCEPHALOPATHY SECONDARY TO UPPER GI BLEEDING WITH HEMATEMESIS. PATIENT IS ALERT AND ORIENTED X4. ANXIOUS, ABLE TO VOICE HER NEEDS AND CONCERNS. REASSESSMENT PER CHART. VSS ON RA. ORGAN TEACHER ARE EQUAL. LUNGS ARE DEMINISHED. HAS HX OF LUNG CANCER, SAT ADEQUATE ON RA. ABD IS SOFT WITH BSX4. HYPOACTIVE LAST BM WAS ON September. HAS POOR APPETITE. PT HAS POSITIVE FOR UA, HAS URINARY URGENCY. SKIN INTACT EXCEPT OLD SCAB ON LEFT ELBOW. PT UP WITH CGA WITH GB, HAS ORTHOSTATIC B/P ORDER CHECK EVERY MORNING. UP IN RECLINER FOR DINNER, ATE 50% IV ON RIGHT FOREARM SL. FALL AND SAFETY PROTOCOLS IN PLACE. DENIES PAIN, SOB, N/V AT THIS AM. OFFERED SUPPORTIVE CARE. DISCUSSED WITH PT ABOUT REHAB. PT READ FALL CONTRACT AND SIGNED ADMISSION CONSENTS. REVIEWED ADMISSION MEDS WITH PT AND CALLED DR. MCCALLUM FOR T.O FOR NICOTINE GUM PRN PER PT'S REQUEST,MELATONIN FOR SLEEP AND BID MIRALAX FOR CONSTIPATION. GAVE REPORT TO NIGHT NURSE TO CONTINUE TO MONITOR.
[2019-09-18 20:24] VITALS: BP 113/56
--- NOTE | 2019-09-19 01:20 | NUR ---
ASSUMED CARE ON 09/18/19 @ 1900, IN BED, A&OX3, PLEASANT AFFECT. FORGETFULNESS NOTED. SINGLE LUMEN PERIPHERAL IV IN RIGHT FORE ARM. DRESSING C/D/I GAIT BELT USED X1 ASSIST. SPO2 96% ON ROOM AIR. LUNGS CTA BILAT BREATH SOUNDS AUSCULTATED. HRRR, ABD N X 4 Q. ANXIETY NOTED AT TIMES. COMPLIANT WITH MEDICATIONS. IN BED WITH EYES CLOSED, RESPIRATIONS EVEN AND UNLABORED, BED IN LOW POSITION, BED ALARM SET. WILL CONTINUE TO MONITOR Q HOUR FOR PATIENT SAFETY.
[2019-09-19 05:35] LABS: HEMATOCRIT 24.5 % (37.0-47.0); HEMOGLOBIN 8.3 gm/dL (12.0-15.0); MCH 35.1 pg (26.0-34.0); MCHC 33.7 g/dL (28.0-37.0); RBC 2.36 mil/uL (4.20-5.00); RDW 14.2 % (10.5-14.5); WBC 8.7 thou/uL (4.0-11.0)
[2019-09-19 05:43] LABS: CALCIUM 7.5 mg/dL (8.5-10.1); CREATININE 1.3 mg/dL (0.6-1.0)
[2019-09-19 08:00] VITALS: BP 111/49
[2019-09-19 08:01] VITALS: BP 79/64
[2019-09-19 08:03] VITALS: BP 116/58
--- NOTE | 2019-09-19 09:11 | NUR ---
ASSUMED CARE AT 0700. PATIENT IS ALERT AND ORIENTED X3, CAN BE FORGETFUL AND HAS SOME SUNDOWNING PER HX. PATIENT SIMS'S, TECHNOLOGY ADVISOR ARE EQUAL. LUNGS ARE CLEAR ABD IS SOFT WITH BSX4. PATIENT CONTINUES ON ABT FOR UTI. NO ADVERSE AFFECTS NOTED. PATIENT HAS S.L. IN HER RIGHT F.A. PATIENT IS VERY ANXIOUS THIS A.M. MEDICATED WITH PRN PER REQUEST. PATIENT IS UP WITH ASSIST OF 1 STAFF AND GAIT BELT AND WALKER. ENCOURAGED PO FLUIDS. SHERLEY HOSE APPLIED. PATIENT HAS HX OF ORTHOSTATIC BP. PLAN TUBIGRIPS UNTIL SHERLEY HOSE AVAILABLE. FALL AND SAFETY PROTOCOLS IN PLACE. C/O NECK PAIN. MEDICATED WITH PRN PAIN MEDS. CONTINUES TO PROGRESS SLOWLY. PATIENT GETTING ALL EVALS TODAY. WILL CONTINUE TO MONITER.
[2019-09-19 19:12] VITALS: BP 120/49
--- NOTE | 2019-09-19 23:14 | NUR ---
PT ALERT AND ORIENTED X 4. UP TO BSC WITH ASSIST X 1. HAS HAD 2 LOOSE STOOLS SO FAR TONIGHT. PT DENIES PAIN OR DISCOMFORT. BED ALARM ON FOR SAFETY. PT APPEARS TO BE SLEEPING ON HOURLY ROUNDS.
[2019-09-20 06:39] LABS: HEMATOCRIT 22.1 % (37.0-47.0); HEMOGLOBIN 7.5 gm/dL (12.0-15.0)
[2019-09-20 09:45] VITALS: BP 95/44
[2019-09-20 09:46] VITALS: BP 94/44
[2019-09-20 09:47] VITALS: BP 85/49
[2019-09-20 10:19] LABS: HEMOGLOBIN 8.1 gm/dL (12.0-15.0)
--- NOTE | 2019-09-20 10:30 | NUR ---
ASSUMED CARE AT 0700. PATIENT IS ALERT AND ORIENTED X3, AND CAN BE FORGETFUL. PATIENT SIMS'S, JOB DEVELOPER FOR DEAF ADULTS ARE EQUAL. LUNGS ARE CLEAR AND DEMINISHED. ABD IS SOFT WITH BSX4. UP TO THE BATHROOM TO VOID LEAH COLORED URINE. H&H REDRAWN. RESULTS CALLED TO DR. MCCALLUM. NS 500CC BOLUS STARTED PER S.L. IN THE PATIENTS RIGHT FORARM. IV SITE WITHOUT REDNESS OR SWELLING. PATIENT C/O BEING ANXIOUS. MEDICATED WITH PRN ANXIETY MED. UP IN THE CHAIR FOR BREAKFAST. FALL AND SAFETY PROTOCOLS IN PLACE. DENIES PAIN AT THIS TIME. CONTINUES TO PROGRESS SLOWLY TOWARDS D/C GOALS. WILL CONTINUE TO MONITER.
[2019-09-20 19:22] VITALS: BP 95/50
[2019-09-20 20:29] LABS: HEMATOCRIT 22.3 % (37.0-47.0); HEMOGLOBIN 7.6 gm/dL (12.0-15.0)
--- NOTE | 2019-09-21 04:22 | NUR ---
UP TO BSC WITH MIN ASSIST, EXPLINED TO PATIENT REASON FOR BLOOD WORK MORE OFTEN THAN DAILY (LOW HGB). TEN MINUTE DISCUSSION OF MEDS INCLUDED HISTORY OF TAKING PLAVIX AND REASON FOR TAKING BACTRIM NOW (APPARENT UTI) , PATIENT APPRECIATED SPLITTING BACTRIM IN HALF AND TAKING IT WITH A SMALL AMOUNT OF APPLESAUCE.
[2019-09-21 07:56] VITALS: BP 82/57
[2019-09-21 07:58] VITALS: BP 92/56; BP 98/54
--- NOTE | 2019-09-21 15:19 | NUR ---
chart review. cm visited with haylee via phone call. intro to cm, transition of care and team meeting. she is pleasant and able to make her needs know. haylee reported" live home with , if enter from garage no steps. then there is 8 steps to main level. independent prior to hospital. no dme. manage own medication and drives vehicle still. yes [facility] in past not sure why needed that then. i would use that hh if needed again"/pt. will cont following as needed for dc needs.
--- NOTE | 2019-09-21 16:20 | NUR ---
ASSUMED CARE AT 0700. REPORTS SLEPT BETTER LAST NIGHT. PATIENT IS ALERT AND ORIENTED X3, FORGETFUL AT TIME. REASSSESSMENT PER CHART.ABD IS SOFT WITH BSX4. REPORTS LAST BM WAS LOOSE YESTERDAY. REFUSES MIRALAX. PATIENT CONTINUES ON ABT FOR UTI. NO ADVERSE AFFECTS NOTED. PATIENT HAS S.L. IN HER RIGHT F.A. PATIENT IS VERY ANXIOUS THIS A.M AFTER TALKING WITH PATRICK. PT HAS SOME QUESTIONS ABOUT HER MEDS. XANAX MEDICATED WITH PRN PER REQUEST. PATIENT IS UP WITH ASSIST OF 1 STAFF AND GAIT BELT AND WALKER. ENCOURAGED PO FLUIDS. SHERLEY HOSE APPLIED. PATIENT HAS HX OF ORTHOSTATIC BP. LYING 82/57, SITTING 92/56, STANDING 98/54. DENIES DIZZINESS. OFFERED SUPPORTIVE CARE. MEDS GIVEN ORDERED. PT REFUSES MEGACE, SAID I AM EATING BETTER, I DO NOT NEED IT. APPETITE IS GETTING BETTER. ATE 85% ABOVE FOR BREAKFAST AND LUNCH. ASSISTED PT WITH HER NEEDS AND CONCERNS. SOME NEW ORDERS CHANGED SEE L[employer]Idealist. FALL AND SAFETY PROTOCOLS IN PLACE. CONTINUES TO PROGRESS SLOWLY. PATIENT GETTING ALL EVALS TODAY. WILL CONTINUE TO MONITOR.
[2019-09-21 20:00] VITALS: BP 114/43
--- NOTE | 2019-09-22 05:00 | NUR ---
UP TO TOILET WITH SBA. SCDs ON AFTER SHERLEY HOSE REMOVED. PATIENT CONCERNED ABOUT POSITIVE HEMOCULT, CARAFATE IS NEW MED, EDUCATION ABOUT FREQUENCY, PURPOSE, AND LOCAL EFFECT OF MED. XANAX FOR ANXIETY AFTER BP CHECKED FOR SBP>THAN 90. PATIENT IS HOPING TO GO HOME SOON AND WORRIES THAT ANEMIA TROUBLES WILL PROLONG STAY
[2019-09-22 05:14] LABS: HEMATOCRIT 21.3 % (37.0-47.0); HEMOGLOBIN 7.3 gm/dL (12.0-15.0); MCH 35.5 pg (26.0-34.0); MCHC 34.2 g/dL (28.0-37.0); MCV 103.9 fL (80.0-100.0); RBC 2.05 mil/uL (4.20-5.00); RDW 14.9 % (10.5-14.5); WBC 6.5 thou/uL (4.0-11.0)
[2019-09-22 07:45] VITALS: BP 105/56
[2019-09-22 07:46] VITALS: BP 105/61
[2019-09-22 07:47] VITALS: BP 108/62
[2019-09-22 09:43] LABS: CALCIUM 8.1 mg/dL (8.5-10.1); CREATININE 1.7 mg/dL (0.6-1.0); MAGNESIUM 1.3 mg/dL (1.8-2.4); POTASSIUM 4.5 mmol/L (3.5-5.1)
--- NOTE | 2019-09-22 11:05 | NUR ---
vendor form and hh list choice given to bedside nurse to give to pt and place on pt chart.
--- NOTE | 2019-09-22 12:04 | NUR ---
ASSUMED CARE AT 0700. REPORTS SLEPT BETTER LAST NIGHT. PT WAS CONFUSED THIS AM.PATIENT IS ALERT AND ORIENTED X3, FORGETFUL AT TIME. REASSSESSMENT PER CHART.ABD IS HYPOACTIVE. PT IS ON ABT FOR UTI, COLACE. REFUSED MIRALAX AT FIRST. ENCOURAGED PT TO TAKE MIRALAX. MIRALAX GIVEN WITH WARM APPLE JUICE WILL CONTINUE TO MONITOR BM. PT HAS GASTRITIS. SULCAFATE AND PROTONIX GIVEN ORDERED. HGB 7.3 THIS AM. NOTIFIED PATRICK. PATIENT HAS S.L. IN HER RIGHT F.A. PATIENT IS VERY ANXIOUS AND WORRY, WANTS TO GO HOME. DISCUSSED ABOUT TEAM MEETING TODAY. XANAX GIVEN PER REQUEST.HR IS 128. 1MG XANAX MAY BE TOO MUCH FOR PT. NOTIFIED DR. CASTRO TO EVALUATE TO SEE IF IT CAN LOW DOWN O.5MG INSTEAD OF 1MG. WILL CONTINUE TO EVALUATE ANXIETY. WITH ASSIST OF 1 STAFF AND GAIT BELT AND WALKER. ENCOURAGED PO FLUIDS. SHERLEY HOSE APPLIED. PATIENT HAS HX OF ORTHOSTATIC BP. LYING 105/56, SITTING 105/61 STANDING 108/62 DENIES DIZZINESS. OFFERED SUPPORTIVE CARE. MEDS GIVEN ORDERED. PT REFUSES MEGACE THIS AM. FALL AND SAFETY PROTOCOLS IN PLACE. CONTINUES TO PROGRESS SLOWLY. WILL CONTINUE TO MONITOR.
--- NOTE | 2019-09-22 16:48 | NUR ---
FAXED REFERRAL TO [facility] SPOKE WITH SHABBIR IN INTAKE SHE RECEIVED REFERRAL AND WILL ACCEPT AT [place]. DP TO FOLLOW.
[2019-09-22 16:49] VITALS: BP 108/62
[2019-09-22 19:29] VITALS: BP 96/48
--- NOTE | 2019-09-23 02:12 | NUR ---
ASSUMED CARE OF PT AT 1930 ON 09/22/19. PT IS A&OX3 WITH REPORTED FORGETFULNESS. CAN BE IMPULSIVE AT TIMES. IS STABLE. DENIES PAIN. IS UP WITH SBA & GB. FALL PRECAUTIONS & HOURLY ROUNDING CONTINUED THIS SHIFT. IS ON ROOM AIR. DAY SHIFT NURSE REPORTED THAT NEW IV INFILTRATED. HAS NO IV ACCESS AT THIS TIME. NO IV MEDICATIONS OR FLUIDS DUE AT THIS TIME. LABS & VITALS REVIEWED. PT IS CURRENTLY SLEEPING. ACROSS FROM NURSE STATION. CALL LIGHT WITHIN REACH. WILL CONTINUE TO MONITOR.
[2019-09-23 07:01] LABS: HEMATOCRIT 22.5 % (37.0-47.0); HEMOGLOBIN 7.5 gm/dL (12.0-15.0); MCH 34.5 pg (26.0-34.0); MCHC 33.5 g/dL (28.0-37.0); RBC 2.18 mil/uL (4.20-5.00); RDW 14.9 % (10.5-14.5); WBC 4.5 thou/uL (4.0-11.0)
[2019-09-23 07:13] LABS: % SATURATION 37 % (20-39); IRON 70 ug/dL (50-170); TIBC 189 ug/dL (250-450)
[2019-09-23 08:19] VITALS: BP 137/67
[2019-09-23 08:33] LABS: CALCIUM 8.2 mg/dL (8.5-10.1); CREATININE 1.5 mg/dL (0.6-1.0); MAGNESIUM 1.4 mg/dL (1.8-2.4); POTASSIUM 4.3 mmol/L (3.5-5.1)
--- NOTE | 2019-09-23 13:28 | NUR ---
Nursing reports pt agreeable to dc home Wednesday 09/27 with hh. They wanted to confirm that the pt udpated her family and that they will be available that day to take her home. Message left for spouse regarding the dc date and plan. Return call requeseted to 5N to confirm he can pick her up at 1300 on Saturday which is a holiday.
--- NOTE | 2019-09-23 14:48 | NUR ---
ASSUMED CARES AT 0700. PT AWAKE, ALERT AND ORIENTED*4 BUT FORGETFUL. DENIES PAIN. VITALS STABLE. LS CLEAR WITH EQUAL AERATION, PT CONTINUES TO HAVE A DRY COUGH, C/O SOB WITH ACTVIITY. CHEST X-RAY ORDERED. PT C/O SORE ON THE ROOF OF HER MOUTH, PICTURE TAKEN OF THE MOUTH, NOTED THE SORE IN HER MOUTH. UP WITH SBA, GB AND WALKER AND TOLERATED WELL. Q1H VISUAL CHECKS. CALL LIGHT WITHIN REACH. FALL PRECAUTIONS IN PLACE
[2019-09-23 20:05] VITALS: BP 100/52
--- NOTE | 2019-09-24 06:00 | NUR ---
CALLS APPROPRIATELY FOR TRIPS UP TO TOILET WITH STEADY GAIT. PREFERED TO HAVE ONLY 15 CC OF ORDERED MAGIC MOUTHWASH AND THEN A SWISH AND SPIT INSTEAD OF SWISH AND SWALLOW, AND DID NOT WANT ANY THIS AM. TOLERATING CARAFATE WITHOUT LIKING THE TASTE OR BEING ABLE TO NOTICE IF IT IS HELPING SYMPTOMS, WE DISCUSS THIS BECAUSE SHE HOPES SHE DOES NOT HAVE TO CONTINUE TAKING IT WHEN SHE GOES HOME
[2019-09-24 08:00] VITALS: BP 125/61
--- NOTE | 2019-09-24 14:52 | NUR ---
tried calling pt room, no answer. cm verified with codey santos date "25th and time 1300 at er entrance door"/codey. bedside nurse to fax dc orders to antonette fitzpatrick [phone]
[2019-09-24 14:55] VITALS: BP 108/62
--- NOTE | 2019-09-24 16:05 | NUR ---
ASSUMED CARES AT 0700. PT AWAKE, ALERT AND ORIENTED*4. DENIES PAIN. VITALS STABLE. LS CLEAR AND O2 SATS STABLE. PT CONTINUES TO HAVE A COUGH. VIDEO SWALLOW DONE TODAY SHOWED INFILTRATION WITH THIN, BUT NONE SEEN WHEN PT TUCKS CHIN WHEN SWALLOWING. SUPERVISION NEEDED WITH ALL MEALS. PILLS CRUSHED IN APPLESAUCE PER ST RECOMENDATION. PT UP WITH SBA AND GB AND TOLERATED WELL. Q1H VISUAL CHECK. CALL LIGHT WITHIN REACH. FALL PRECAUTIONS IN PLACE
[2019-09-24 19:43] VITALS: BP 121/65
--- NOTE | 2019-09-25 03:58 | NUR ---
assumed care at approx 1900 evening 09/23. pt alert and oriented x4 talking on phone at change of shift. pt somewhat forgetful however pleasant. pt up to bathroom with standby assist tolerating well. pt took hs meds with applesauce crushed. pt denies pain. pt appears to be sleeping soundly in between bathroom breaks. bed alarm on and call light in reach. will continue to monitor.
[2019-09-25 09:02] LABS: ABSOLUTE NEUTROPHILS 4.4 thou/uL (1.4-8.2); BASOPHILS 0.6 % (0.0-2.0); EOSINOPHILS 2.4 % (0.0-3.0); HEMATOCRIT 27.9 % (37.0-47.0); HEMOGLOBIN 9.3 gm/dL (12.0-15.0); LYMPHOCYTES 17.3 % (24.0-44.0); MCHC 33.4 g/dL (28.0-37.0); MCV 104.9 fL (80.0-100.0); MONOCYTES 5.9 % (1.0-8.0); POLYS 73.8 % (36.0-66.0); RBC 2.66 mil/uL (4.20-5.00); RDW 15.5 % (10.5-14.5)
[2019-09-25 09:03] LABS: PLATELET COUNT 427 thou/uL (150-400)
[2019-09-25 09:10] LABS: CALCIUM 9.1 mg/dL (8.5-10.1); CREATININE 1.9 mg/dL (0.6-1.0); MAGNESIUM 1.7 mg/dL (1.8-2.4)
--- NOTE | 2019-09-25 15:55 | NUR ---
ASSUMED CARE OF THE PT AT 0700. PT BECOMES VERY ANXIOUS ONCE ANXIETY MEDICATION WEARS OFF, SEE EMAR. PT HAD 2 BMS TODAY, WITH STRAINING, GAVE PT MEDS FOR CONSTIPATION, SEE EMAR. PT CAN TURN SELF. L UPPER ARM IV INFILTRATED/ REMOVED. IV PLACE IN R FOREARM. PT REFUSED SCD'S, SWISH/SWALLOW MEDS. PT IS VERY FORGETFUL AND CONFUSED, SOMEONE NEEDS TO SUPERVISE PT WHILE SHE IS EATING, DRINKING AND TAKING MEDS. FALL PRECAUTIONS IN PLACE, BED IN LOWEST POSITION/BED ALARM ON, CALL LIGHT IS WITHIN REACH. WILL CONTINUE TO MONITOR THE PT.
[2019-09-25 20:27] VITALS: BP 166/63
[2019-09-25 21:05] VITALS: BP 129/54
--- NOTE | 2019-09-26 01:27 | NUR ---
ASSUMED CARE AROUND 1900, PT A&O X 3, FORGETFUL AT TIMES. NO ACUTE DISTRESS NOTED. VSS, O2 ON RA WITH WAN RESP TX. PT DENIED ANY PAIN OR DISCOMFORT BUT WAS WORRIED ABOUT HR. PT APPEARED ANXIOUS AND STATED THAT SHE IS WORRIED ABOUT HR DURING PT BEING ELEVATED. INITIAL HR WAS 107 BUT RECHECKED AFTER 30 MINS WHEN PT HAD CALMED DOWN A BIT AND IT WAS 96. PT GIVEN PRN XANAX FOR ANXIETY AND FELT BETTER EVENTUALLY. REMINDED PT TO DO CHIN TUCK DURING MEDICATION ADMINISTRATION. IV TO RFA INFUSING NS AT 100ML/H. PT ASLEEP, CALL LIGHT WITHIN REACH, WILL CONTINUE TO MONITOR PER POC.
[2019-09-26 08:00] VITALS: BP 170/70
--- NOTE | 2019-09-26 10:17 | HC ---
[facility] [place] [address] CONSULTATION Name: JOLIE ARENAS Room #: 513-P ADM IN M.R.#: [id number] Admission: 09/18/19 Attend Phys: Negro Lomas MD Discharge: Date of : 43 Report #: [id number] THIS REPORT FOR: cc: Konstantin Uribe MD, Stanley P. MD Deutch,Morteza Andres. PhD ~ CC: Negro Uribe DATE OF SERVICE: 09/23/2019 BEHAVIORAL STATUS EXAMINATION ATTENDING PHYSICIAN: Negro Lomas MD SEARCH SPECIALIST: Morteza Waters, PhD CLINICAL PRESENTATION: The patient is a 74-year-old female admitted to the [facility] Rehabilitation Unit for comprehensive inpatient rehabilitation program. She was initially admitted for an acute in-hospital stay with diagnosis of an acute toxic encephalopathy. The patient presented with hematemesis with blood in her stool. She has a history of anxiety and takes medication that include sleep aids along with anxiolytics. Her diagnostic assessment on admission to the rehab unit was toxic metabolic encephalopathy, upper gastrointestinal bleed with hematemesis and melenic stool, urinary tract infection, orthostatic hypotension, acute blood loss anemia, weight loss with protein-calorie malnutrition, anxiety, Sjogren syndrome, history of lung cancer status post chemotherapy and radiation, frequent falls, COPD and an early dementia. A complete description of her medical condition and history can be found in her medical record. Neuropsychological consultation was requested to provide assistance in the assessment of cognitive and emotional status and to provide recommendations and services. Prior to this most recent admission, the patient was living independently with her in their home. She reports coughing up blood and vomiting blood leading to her admission. She has 2 children. 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 Prior history of treatment for anxiety. Additionally, she stated having been diagnosed with lung cancer about 5 years ago. History of panic attacks are also reported. TECHNIQUES UTILIZED: Clinical interview, review of medical records, staff consultation and behavioral observation, mini mental status exam 2 standard version, clock drawing, and verbal fluency assessment. EXAMINATION FINDINGS: The patient was alert and cooperative with the [facility] [address] [place] [address] CONSULTATION Name: JOLIE ARENAS Room #: 513-P [facility]#: [id number] Admission: 09/18/19 Attend Phys: Negro Lomas MD Discharge: Date of : 43 Report #: [id number] assessment. She accurately described the reason for her admission. There is no evidence of aphasia. Her thoughts are logical and goal oriented. There is no evidence of thought disorder. She does not report auditory or visual hallucinations. The patient reports her symptoms to include difficulty with memory, sleep disturbance, high anxiety and depression associated with environmental events and situational concerns. Her performance on the MMSE 2 brief version is within normal limits with a raw score of 14/16. She was 3/3 for initial registration, 4/5 for orientation to time, 5/[address] and 2/3 for immediate recall of 3 items after a brief time delay and distraction. Performance declined on the standard version of the MMSE 2 with a raw score of 25/30, which is a T score of 39 and percentile rank of 14. She was 3/5 for Serial Sevens and was unable to copy a simple geometric design. Naming, comprehension, reading and writing are within normal limits. Her performance on the clock drawing task was impaired. While able to perform the structure of the task, hand placement was incorrect suggesting stimulus bound effect, which can indicate executive dysfunction. Verbal fluency assessment reveals extremely low letter fluency with a raw score of 12, T score of 23, percentile rank of less than 1. Brief category assessment utilizing animal was within normal limits with a raw score of 18, T score of 50, percentile rank of 50. The patient is presenting with deficits in sustained concentration, clock drawing and aspects of verbal fluency suggesting executive dysfunction. DIAGNOSTIC IMPRESSION: Mild neurocognitive disorder - extent to be determined, possibly indicating an early stage dementia of mild severity. Generalized anxiety disorder with history of panic attacks. RECOMMENDATIONS: The patient will benefit from assistance in the management of medication, finances and nutrition. Psychological services to assist in adjustment that would include the use of antidepressant medication with anxiolytic features and cognitive behavior therapy to assist in the utilization of relaxation strategies. Outpatient speech therapy may be of benefit to assist the family and the patient in utilization of compensatory strategies. Follow up assessment for a possible neurodegenerative disorder is also indicated. [address] [address] CONSULTATION Name: SUGEYJOLIE ORELLANA CABRERA Room #: 513-P [facility] IN M.R.#: [id number] Admission: 09/18/19 Attend Phys: Negro Lomas MD Discharge: Date of : 43 Report #: [id number] Thank you very much for allowing me to provide the consultation on this patient. <ELECTRONICALLY SIGNED> By: Morteza Waters, PhD 09/26/19 1017 [id number] Morteza Waters, PhD /nt
--- NOTE | 2019-09-26 10:21 | NUR ---
ASSUMED CARE AT 0700. PATIENT IS ALERT AND ORIENTEDX4. PATIENT NUPUR, BOARD DESIGN ENGINEER ARE EQUAL. PATIENT IS VERY ANXIOUS. PATIENT WAS GIVEN PRN FOR ANXIETY. LUNGS ARE CLEAR AND DEMINISHED. ABD IS SOFT WITH BSX4. PATIENT HAS IV INFUSING IN HER RIGHT AC, NS AT 100CC/HR. IV SITE WITHOUT REDNESS OR SWELLING. PATIENT IS UP WITH ASSIST OF 1 STAFF AND GAIT BELT TO BATHROOM TO VOID LEAH COLORED URINE. FALL AND SAFETY PROTOCOLS IN PLACE. DENIES PAIN AT THIS TIME. UP IN W/C TO DINING ROOM FOR BREAKFAST. PATIENT ENCOURAGED TO TUCK CHIN WHEN TAKING PO FLUIDS. PATIENT CONTINUES TO PROGRESS SLOWLY TOWARDS D/C GOALS. WILL CONTINUE TO MONITER.
[2019-09-26 13:37] LABS: ALBUMIN 3.3 g/dL (3.4-5.0); CALCIUM 8.1 mg/dL (8.5-10.1); CREATININE 1.4 mg/dL (0.6-1.0); MAGNESIUM 1.6 mg/dL (1.8-2.4); POTASSIUM 4.1 mmol/L (3.5-5.1); TOTAL BILIRUBIN 0.2 mg/dL (<0.1-1.0); TOTAL PROTEIN 6.6 g/dL (6.4-8.2)
--- NOTE | 2019-09-26 15:30 | NUR ---
DR. TOBAR NOTIFIED OF CMP/MG LAB RESULTS. NO NEW ORDERS AT THIS TIME. WILL CONTINUE TO MONITER.
[2019-09-26 19:30] VITALS: BP 145/76
--- NOTE | 2019-09-26 23:37 | NUR ---
PT ALERT AND ORIENTED X 4. AMB TO BR WITH GAIT BELT AND ASSIST X 1 WITHOUT DIFFICULTY. IV INFUSING ORDERED. VOIDING WITHOUT DIFFICULTY. PT DENIES PAIN OR DISCOMFORT. XANAX GIVEN AT HS PER PT REQUEST FOR ANXIETY. COUGH NOTED. BED ALARM ON FOR SAFETY. PT APPEARS TO BE SLEEPING ON HOURLY ROUNDS.
[2019-09-27 07:53] VITALS: BP 131/71
[2019-09-27 08:50] LABS: BASOPHILS 0.6 % (0.0-2.0); EOSINOPHILS 2.3 % (0.0-3.0); HEMATOCRIT 26.1 % (37.0-47.0); HEMOGLOBIN 8.8 gm/dL (12.0-15.0); LYMPHOCYTES 11.3 % (24.0-44.0); MCH 35.2 pg (26.0-34.0); MCHC 33.6 g/dL (28.0-37.0); MCV 104.8 fL (80.0-100.0); MONOCYTES 5.5 % (1.0-8.0); POLYS 80.3 % (36.0-66.0); RBC 2.49 mil/uL (4.20-5.00); RDW 15.8 % (10.5-14.5); WBC 6.3 thou/uL (4.0-11.0)
[2019-09-27 08:56] LABS: PLATELET COUNT 339 thou/uL (150-400)
[2019-09-27 09:05] LABS: CALCIUM 7.6 mg/dL (8.5-10.1); CREATININE 1.1 mg/dL (0.6-1.0); MAGNESIUM 1.5 mg/dL (1.8-2.4); POTASSIUM 3.6 mmol/L (3.5-5.1)
--- NOTE | 2019-09-27 12:20 | NUR ---
ASSUMED CARE AROUND 0700, PT A&O X 3, FORGETFUL AT TIMES, NO ACUTE DISTRESS NOTED. VSS, O2 ON RA WITH WAN RESP TX. PT DENIES ANY PAIN BUT VERY ANXIOUS, GIVEN PRN XANAX. MEDS GIVEN PER ORDERS, ATE MEALS IN DINING ROOM AND REMINDED PT TO CHIN TUCK BEFORE SWALLOWING. IV TO RAC INFUSINE NC AT 100ML/H. PT CONTINENT, VERY SMALL SOFT BM TODAY, USES BR. PT RESTING, CALL LIGHT WITHIN REACH, WILL CONTINUE TO MONITOR PER POC.
[2019-09-27 19:30] VITALS: BP 148/70
--- NOTE | 2019-09-27 23:23 | NUR ---
PT ALERT AND ORIENTED X 4, ANXIOUS. AMB TO BR WITH GAIT BELT AND ASSIST X 1 WITHOUT DIFFICULTY. PT CALLS OUT FREQUENTLY TO GO TO BR. PT REFUSED SENNA AND MIRALAX AT HS. PT DENIES PAIN OR DISCOMFORT. XANAX GIVEN AT THIS TIME FOR ANXIETY. BED ALARM ON FOR SAFETY. PT CHECKED ON HOURLY ROUNDS.
[2019-09-28 08:51] VITALS: BP 151/74
[2019-09-28] MEDS ORDERED: CARDIZEM CD 18180 M3 PO (10:52)
[2019-09-28 11:31] VITALS: BP 139/72
--- NOTE | 2019-09-28 13:45 | NUR ---
ASSUMED CARES AT 0700. PT AWAKE, ALERT AND ORIENTED *3-4, FORGETFUL. ANXIOUS. DENIES PAIN. HR ELEVATED AND PT STATED ITS BECAUSE SHE WAS ANXIOUS. CARDIZEM AND XANAX ADMINISTERED PER ORDER. ALL OTHER VITALS STABLE. 100% SUPERVISION WITH MEALS, PT ENCOURAGED TO TUCK CHIN PRIOR TO SWALLOWING. DC TEACHING COMPLETED WITH PT AT THE BEDSIDE, A SIMPLIFIED LIST OF MEDS GIVEN TO PT WITH TIME WHEN THEY ARE DUE. PT VERBALISED UNDERSTANDING. IV ON RIGHT AC DC'D. PT DC'D AT 1300 TO HOME WITH .
--- NOTE | 2019-09-29 13:43 | NUR ---
PT [facility] FA[facility]ED DC ORDERS/SUMMARY SPOKE WITH SHABBIR IN INTAKE SHE RECEIVED ORDERS AND WILL NOTIFY PT TIME OF VISITS.
== END 2019-09-28 13:58 | disposition home health service (06) | DRG 91 ==
PROVIDERS: Hospitalist; Internal Medicine; Nurse Practitioner; Nurse Practitioner Family; Specialist; ADMIT Physical Medicine & Rehabilitation
DX: G92 Toxic encephalopathy (principal); K27.4 Chronic or unspecified peptic ulcer, site unspecified, with hemorrhage; N39.0 Urinary tract infection, site not specified; D62 Acute posthemorrhagic anemia; N17.9 Acute kidney failure, unspecified; E44.0 Moderate protein-calorie malnutrition; Z68.1 Body mass index [BMI] 19.9 or less, adult; I95.1 Orthostatic hypotension; M35.00 Sjogren syndrome, unspecified; R29.6 Repeated falls; J44.9 Chronic obstructive pulmonary disease, unspecified; I73.9 Peripheral vascular disease, unspecified; N18.2 Chronic kidney disease, stage 2 (mild); E78.5 Hyperlipidemia, unspecified; K22.70 Barrett's esophagus without dysplasia; K21.9 Gastro-esophageal reflux disease without esophagitis; M35.09 Sjogren syndrome with other organ involvement; K44.9 Diaphragmatic hernia without obstruction or gangrene; F03.90 Unspecified dementia, unspecified severity, without behavioral disturbance, psychotic disturbance, mood disturbance, and anxiety; I12.9 Hypertensive chronic kidney disease with stage 1 through stage 4 chronic kidney disease, or unspecified chronic kidney disease; E86.0 Dehydration; F41.1 Generalized anxiety disorder; F41.0 Panic disorder [episodic paroxysmal anxiety]; K29.70 Gastritis, unspecified, without bleeding; Z85.118 Personal history of other malignant neoplasm of bronchus and lung; Z92.3 Personal history of irradiation; Z86.73 Personal history of transient ischemic attack (TIA), and cerebral infarction without residual deficits; Z88.8 Allergy status to other drugs, medicaments and biological substances; Z88.0 Allergy status to penicillin; Z88.1 Allergy status to other antibiotic agents; Z98.41 Cataract extraction status, right eye; Z98.42 Cataract extraction status, left eye
CPT/HCPCS: 10112

== ENCOUNTER → 2019-11-27 | Outpatient (CLI) | payer OTHER, BC ==
[~2019-11-27] MED LIST changes: +CARDIZEM CD 18180 M3 PO
== END ==
LOC: SJCVCIMAG 11:47
PROVIDERS: ATTEND Internal Medicine Cardiovascular Disease
DX: I65.23 Occlusion and stenosis of bilateral carotid arteries (principal); I70.201 Unspecified atherosclerosis of native arteries of extremities, right leg; M71.21 Synovial cyst of popliteal space [Baker], right knee; M79.605 Pain in left leg; Z95.828 Presence of other vascular implants and grafts

== ENCOUNTER → 2019-12-08 | Outpatient (CLI) | payer OTHER, BC | LOC: SJCVCIMAG 08:49 | PROVIDERS: ATTEND Internal Medicine Cardiovascular Disease | DX: I08.0 Rheumatic disorders of both mitral and aortic valves (principal); I25.10 Atherosclerotic heart disease of native coronary artery without angina pectoris; R94.31 Abnormal electrocardiogram [ECG] [EKG]; I45.10 Unspecified right bundle-branch block; I73.9 Peripheral vascular disease, unspecified; I10 Essential (primary) hypertension; E78.00 Pure hypercholesterolemia, unspecified; J44.0 Chronic obstructive pulmonary disease with (acute) lower respiratory infection; M35.00 Sjogren syndrome, unspecified; C34.90 Malignant neoplasm of unspecified part of unspecified bronchus or lung; Z78.9 Other specified health status; Z79.899 Other long term (current) drug therapy; Z86.73 Personal history of transient ischemic attack (TIA), and cerebral infarction without residual deficits; Z87.891 Personal history of nicotine dependence ==

== ENCOUNTER → 2020-02-17 | Outpatient (CLI) | payer OTHER, BC | LOC: RAD 09:16 | PROVIDERS: ATTEND Internal Medicine | DX: J90 Pleural effusion, not elsewhere classified (principal); J44.9 Chronic obstructive pulmonary disease, unspecified ==

== ENCOUNTER → 2020-03-23 | Outpatient (CLI) | payer OTHER, BC | LOC: RAD 14:20 | PROVIDERS: ATTEND Internal Medicine | DX: J43.9 Emphysema, unspecified (principal); J90 Pleural effusion, not elsewhere classified ==

== ENCOUNTER → 2020-04-05 | Outpatient (CLI) | payer OTHER, BC | LOC: RAD 13:28 | PROVIDERS: ATTEND Nuclear Medicine Nuclear Cardiology | DX: M47.814 Spondylosis without myelopathy or radiculopathy, thoracic region (principal); M85.88 Other specified disorders of bone density and structure, other site; M40.294 Other kyphosis, thoracic region; Z87.81 Personal history of (healed) traumatic fracture ==

== ENCOUNTER → 2020-08-16 | Outpatient (CLI) | payer OTHER, BC | LOC: SJCVCIMAG 08:51 | PROVIDERS: ATTEND Nuclear Medicine Nuclear Cardiology | DX: R94.31 Abnormal electrocardiogram [ECG] [EKG] (principal); I45.10 Unspecified right bundle-branch block; I70.202 Unspecified atherosclerosis of native arteries of extremities, left leg; I25.10 Atherosclerotic heart disease of native coronary artery without angina pectoris; I10 Essential (primary) hypertension; E78.00 Pure hypercholesterolemia, unspecified; J44.9 Chronic obstructive pulmonary disease, unspecified; I73.9 Peripheral vascular disease, unspecified; I77.9 Disorder of arteries and arterioles, unspecified; I35.0 Nonrheumatic aortic (valve) stenosis; M79.661 Pain in right lower leg; M79.662 Pain in left lower leg; F17.210 Nicotine dependence, cigarettes, uncomplicated; Z86.73 Personal history of transient ischemic attack (TIA), and cerebral infarction without residual deficits; Z79.899 Other long term (current) drug therapy; Z79.84 Long term (current) use of oral hypoglycemic drugs; Z88.1 Allergy status to other antibiotic agents; Z88.8 Allergy status to other drugs, medicaments and biological substances; Z88.5 Allergy status to narcotic agent; Z88.0 Allergy status to penicillin ==

== ENCOUNTER → 2020-09-14 | Outpatient (CLI) | payer OTHER, BC | LOC: BC 10:00 | PROVIDERS: ATTEND Internal Medicine | DX: Z12.31 Encounter for screening mammogram for malignant neoplasm of breast (principal) ==

== ENCOUNTER 2021-02-06 10:34 | Inpatient (IN) | payer OTHER, BC ==
[~2021-02-06] VITALS: Ht 152.4 cm; Wt 44.0 kg
[2021-02-06 10:36] VITALS: BP 158/74
[2021-02-06 11:19] LABS: ABSOLUTE NEUTROPHILS 4.2 thou/uL (1.4-8.2); BASOPHILS 0.5 % (0.0-2.0); EOSINOPHILS 3.1 % (0.0-3.0); HEMATOCRIT 40.8 % (37.0-47.0); HEMOGLOBIN 13.4 gm/dL (12.0-15.0); LYMPHOCYTES 21.5 % (24.0-44.0); MCH 33.1 pg (26.0-34.0); MCHC 32.9 g/dL (28.0-37.0); MCV 100.6 fL (80.0-100.0); MONOCYTES 6.9 % (1.0-8.0); PLATELET COUNT 298 thou/uL (150-400); RBC 4.05 mil/uL (4.20-5.00); RDW 14.3 % (10.5-14.5); WBC 6.2 thou/uL (4.0-11.0)
[2021-02-06 11:25] LABS: CALCIUM 9.3 mg/dL (8.5-10.1); CREATININE 1.4 mg/dL (0.6-1.0); POTASSIUM 4.4 mmol/L (3.5-5.1)
--- NOTE | 2021-02-06 11:27 | EKG ---
[facility] [place] [address] ELECTROCARDIOGRAM REPORT Name: JOLIE ARENAS Room #: ANA LAURA Pham#: [id number] Admission: 02/06/21 Attend Phys: Discharge: Date of : 43 Report #: [id number] [facility] ED Test Date: 2021-02-06 Test Time: 10:53:58 Pat Name: JOLIE ARENAS Department: Room: Gender: F Lumber Straightened: shreya : 1945 Requested By: Colin Buckner Order Number: [id number] MD: Leonardo Bond Measurements Intervals [place] Rate: 102 P: 68 MT: 156 QRS: 58 QRSD: 124 T: 21 QT: 376 QTc: 490 Interpretive Statements Sinus tachycardia Probable left atrial enlargement Right bundle branch block Repol abnrm suggests ischemia, lateral leads Compared to ECG 09/14/2019 09:01:42 Right bundle-branch block now present Early repolarization now present Possible ischemia now present Sinus rhythm no longer present Incomplete right bundle-branch block no longer present Electronically Signed On 02-06-2021 11:27:36 CDT by Leonardo Bond [email or web address] <ELECTRONICALLY SIGNED> By: Leonardo Bond MD, FACC 02/06/21 1127 1053 1053 Leonardo Bond MD, [facility] /EPI
[2021-02-06 11:31] LABS: APTT 29.3 Seconds (24.5-32.8); INR 0.98; PROTIME 10.7 Seconds (10.5-12.1)
[2021-02-06] MEDS ORDERED: PROTONIX40 M2 PO (12:52)
[2021-02-06] MEDS ORDERED: METOPROLOL SUCC50 MG PO (12:53)
[2021-02-06] MEDS ORDERED: NORVASC5 MG PO (12:54)
[2021-02-06] MEDS ORDERED: ALPRAZOLAM XR1 MG PO (12:58)
[2021-02-06] MEDS ORDERED: PLAQUENIL200 MG PO (12:59)
[2021-02-06] MEDS ORDERED: ZETIA10 MG PO (12:59)
[2021-02-06] MEDS ORDERED: ADVAIR 500-501 EACH INH (13:00)
[2021-02-06] MEDS ORDERED: BENADRYL25 MG PO (13:01)
[2021-02-06] MEDS ORDERED: CARAFATE1 GM PO (13:01)
[2021-02-06] MEDS ORDERED: PROLIA60 MG/1 ML SUBQ (13:03)
[2021-02-06] MEDS ORDERED: NICORETTE2 MG TRANSDERM (13:03)
[2021-02-06] MEDS ORDERED: SLEEP AID50 MG PO (13:05)
--- NOTE | 2021-02-06 19:42 | NUR ---
PER DR LONDON ORDERS, PT IS ALLOWED TO HAVE ICE CHIPS AND A FEW SIPS OF WATER.
[2021-02-06 23:35] VITALS: BP 109/58
[2021-02-06 23:40] VITALS: BP 150/73
[2021-02-06 23:54] VITALS: BP 113/61
[2021-02-07] VITALS (41 sets, daily range): BP systolic 88–153; BP diastolic 41–131
[2021-02-07 04:51] LABS: CALCIUM 8.7 mg/dL (8.5-10.1); CREATININE 1.2 mg/dL (0.6-1.0); MAGNESIUM 1.7 mg/dL (1.8-2.4); POTASSIUM 4.7 mmol/L (3.5-5.1)
[2021-02-07 04:54] LABS: HEMATOCRIT 34.1 % (37.0-47.0); HEMOGLOBIN 11.5 gm/dL (12.0-15.0); MCH 34.2 pg (26.0-34.0); MCHC 33.6 g/dL (28.0-37.0); RBC 3.35 mil/uL (4.20-5.00); RDW 14.4 % (10.5-14.5); WBC 4.4 thou/uL (4.0-11.0)
--- NOTE | 2021-02-07 06:18 | NUR ---
PT ON 2LNC OVERNIGHT- MOST LIKELY WILL NOT BE NEEDED DURING THE DAY. NO HEMOPTYSIS OVERNIGHT. WILL CONTINUE TO MONITOR.
--- NOTE | 2021-02-07 16:50 | NUR ---
Chart review. Discussed during unit rounds and los with the hospitalist. Dx: hemoptysis, Hx of cancer. Has had some bleeding in the past years. She is resting with eyes closed. Called spouse dayanara, no answer. Breanna live in home, 5 steps to enter and 8 stairs inside. Normal independent when feeling ok. Been to acute rehab here, 5 N in September of 2019. [facility] past. Current requiring oxygen per nasal cannula. No home oxygen. Will cont. following as needed for dc needs.
[2021-02-08] VITALS (15 sets, daily range): BP systolic 96–124; BP diastolic 47–69
--- NOTE | 2021-02-08 05:46 | NUR ---
PT SLEPT MOST OF THE NIGHT. PLACED PT ON 2L NC WHILE ASLEEP DUE TO O2 SATS MID-80S WHILE SLEEPING. SPO2 98-100% ON 2L NC. PT AWOKE AROUND 0400, CONFUSED AND DISORIENTED. ASSISTED PT TO BSC. REORIENTED PATIENT. PRN ALPRAZOLAM GIVEN FOR ANXIETY. PT NOW CALM AND SLEEPING AGAIN. FALL PRECAUTIONS IN PLACE. NPO AFTER MIDNIGHT FOR EGD TODAY. PROGRESSING SLOWLY TOWARD POC GOALS. WILL GIVE REPORT TO ONCOMING NURSE.
--- NOTE | 2021-02-08 12:53 | NUR ---
PT REMAINED NPO SINCE MIDNIGHT. PT GOT UP TO BEDSIDE COMMODE X3. PT WALKED TO SINK WITH GAIT BELT TO BRUSH HER TEETH THIS AM. FLORAL DESIGNER STARTED NEW IV. PT WAS VERY ANXIOUS AND NERVOUS FOR EGD. PT WAS AT BEDSIDE. PRE OP NURSES CAME AND GOT PT AT 1240. WENT WITH PT AND PRE OP NURSES TO WAIT IN [facility] WAITING [facility].
[2021-02-09 00:30] VITALS: BP 121/68
--- NOTE | 2021-02-09 01:51 | NUR ---
ASSUMED CARE OF PT AT 1900. BEDSIDE REPORT RECIEVED. LORENA ASSESSMENT COMPLETE. PT RECENTLY TRANSFERRED FROM ICU. ORIENTED PT TO THIS UNIT AND ROOM. HIGH FALL RISK PRECAUTIONS IN PLACE. L FA PIV CDI, PATENT. MEDS ADMINISTERED ORDERED, PRN XANAX GIVEN PER PT REQUEST. ANSWERED QUESTIONS FOR PT. PT UP TO BSC X1 ASSIST. TELE LEADS REPLACED. WELCOME BOOK GIVEN TO PT. ENSURE ALL NEEDS MET, CALL LIGHT IN REACH
[2021-02-09 04:12] VITALS: BP 115/65
[2021-02-09 07:15] VITALS: BP 157/81
[2021-02-09 11:42] VITALS: BP 118/60
[2021-02-09 12:06] LABS: HEMATOCRIT 38.3 % (37.0-47.0); HEMOGLOBIN 12.6 gm/dL (12.0-15.0); MCH 33.5 pg (26.0-34.0); MCHC 32.9 g/dL (28.0-37.0); MCV 101.8 fL (80.0-100.0); RBC 3.76 mil/uL (4.20-5.00); RDW 14.6 % (10.5-14.5)
--- NOTE | 2021-02-09 16:46 | NUR ---
PT HAD EGD YESTERDAY. HOSPITALIST INDICATED THAT PULM HAD INTENDED TO DO A BRONCHOCOPY BUT THERE WAS NO DOCUMENTATION OF THIS. OT DISCHARGED PT. PT CONTINUES. CM FOLLOWING REGRADING DC PLANNING.
[2021-02-09 16:52] VITALS: BP 135/75
[2021-02-09 19:37] VITALS: BP 129/51
--- NOTE | 2021-02-10 05:48 | NUR ---
RECEIVED CARE OF THIS PATIENT AT 1900. PATIENT ALERT AND ORIENTED AT THAT TIME. BECAME MORE CONFUSED THE NIGHT WORE ON. C/O ANXIETY, MED GIVEN. IV WAS CHANGED AND PUT IN RFA W/O ANY TROUBLE. C/O GAS PAIN. MED ORDER RECEIVED AND MED GIVEN. SLEPT MOST OF NIGHT.
[2021-02-10 07:14] VITALS: BP 124/61
[2021-02-10 11:19] VITALS: BP 124/61
[2021-02-10] MEDS ORDERED: IPRAT-ALBUT 0.5-3 ML INH (11:23)
[2021-02-10] MEDS ORDERED: PREDNISONE 20 M20 M1 PO (11:26)
[2021-02-10] MEDS ORDERED: NYSTATIN100000 UNI SW&SWALLOW (11:28)
[2021-02-10 11:45] VITALS: BP 136/59
--- NOTE | 2021-02-10 11:53 | NUR ---
CARE TEAM INDICATED THAT PT IS MEDICALLY STABLE TO DC HOME THIS DAY. HOSPITALIST WANTS PT TO HAVE HH NURSING. PT AND SPOUSE ARE AWARE AND AGREEABLE. PT INDICATED SHE WOULD LIKE TO USE [facility]. REFERRAL TO BE SENT. IT IS ANTICPATED THEY CAN ACCEPT. PT TO DC AFTER LUNCH. PT'S SPOUSE TO TRANSPORT. NO OTHER CM INTERVENTION INDICATED. CASE CLOSED.
--- NOTE | 2021-02-10 13:50 | NUR ---
Pt A & O x3 with forgetfullnes noted.PT VS stable. pt denies pain/discomfort. Pt is SBA with ADLs and cares. Pt is able to make needs known. Pt is NSR on the tele. PT received medications as ordered. Pt receivd discharge orders to home. Pt at bedside. Pt verbalized understanding of discharge instructions and signed instructions. pt wheeled to front lobby and left with personal belongings in private vehicle.
--- NOTE | 2021-02-13 08:06 | PATH ---
[facility] [address] [place] [address] PATHOLOGY RPT PROCEDURE Name: SUGEYREYNASAMANTHA Room #: 450-P DIS IN M.R.#: [id number] Admission: 02/06/21 Date of : 43 Discharge: 02/10/21 Report #: [id number] Path Case #: [id number] [facility] Accession Number: [id number] . 01 Material submitted: . stomach - ANTRUM BIOPSY- R/O H. PYLORI . 01 Clinical history: . HEMOPTYSIS GASTRITIS, HIATAL HERNIA, ESOPHAGEAL RNG . 02 Diagnosis: Gastric mucosa, antrum, biopsy: - Mild inactive chronic gastritis. - Immunohistochemical stain for H. pylori is negative. ([facility]:jeremy; 02/10/2021) MBR 02/10/2021 1430 Local . 02 Electronically signed: . Rah Sánchez DO, Pathologist NPI- [id number] . 01 Gross description: . The specimen is received in formalin, labeled "Oplotnik, Samantha, antrum biopsy". Received is a single segment of pale swann tissue measuring 1.9 cm in maximum dimensions. The specimen is submitted entirely in cassette A1. ([facility]; 02/09/2021) NRI/NRI 02/09/2021 1752 Local . 02 Pathologist provided ICD-10: K29.50 . 02 CPT . 709525, [id number] Specimen Comment: A courtesy copy of this report has been sent to [phone], [phone]- Specimen Comment: [phone], Specimen Comment: Report sent to , DR RODRIGUEZ / DR TOBAR Performed at: 01 [facility] [address] [id number] MD William Mabry MD Phone: [phone] Performed at: 02 [place] [id number] [address] [id number] MD Nic Alicia MD Phone: [phone]
== END 2021-02-10 14:28 | disposition home health service (06) | DRG 377 ==
LOC: ER 10:34 → ICU 13:10 → EROBS 13:10 → ICU 23:35 → 4W 02-08 18:55
PROVIDERS: Emergency Medicine; Pediatrics; ADMIT Internal Medicine; ATTEND Internal Medicine
PROC: 0DB78ZX Excision of Stomach, Pylorus, Via Natural or Artificial Opening Endoscopic, Diagnostic (ICD-10-PCS; principal; 2021-02-08)
DX: K92.0 Hematemesis (principal); J18.9 Pneumonia, unspecified organism; R04.2 Hemoptysis; C34.90 Malignant neoplasm of unspecified part of unspecified bronchus or lung; E46 Unspecified protein-calorie malnutrition; J44.1 Chronic obstructive pulmonary disease with (acute) exacerbation; Z68.1 Body mass index [BMI] 19.9 or less, adult; F41.9 Anxiety disorder, unspecified; D64.9 Anemia, unspecified; M35.00 Sjogren syndrome, unspecified; Z20.822 Contact with and (suspected) exposure to COVID-19; E78.5 Hyperlipidemia, unspecified; J45.909 Unspecified asthma, uncomplicated; F32.9 Major depressive disorder, single episode, unspecified; K21.9 Gastro-esophageal reflux disease without esophagitis; R53.81 Other malaise; M81.0 Age-related osteoporosis without current pathological fracture; I12.9 Hypertensive chronic kidney disease with stage 1 through stage 4 chronic kidney disease, or unspecified chronic kidney disease; K22.2 Esophageal obstruction; K44.9 Diaphragmatic hernia without obstruction or gangrene; K29.70 Gastritis, unspecified, without bleeding; N18.30 Chronic kidney disease, stage 3 unspecified; E53.8 Deficiency of other specified B group vitamins; Z87.11 Personal history of peptic ulcer disease; Z95.820 Peripheral vascular angioplasty status with implants and grafts; Z98.42 Cataract extraction status, left eye; Z98.41 Cataract extraction status, right eye; Z88.1 Allergy status to other antibiotic agents; Z88.0 Allergy status to penicillin; Z88.8 Allergy status to other drugs, medicaments and biological substances; Z87.891 Personal history of nicotine dependence; Z79.82 Long term (current) use of aspirin; Z79.899 Other long term (current) drug therapy
CPT/HCPCS: 10045; 10078; 62110; 62900; 70005

== ENCOUNTER → 2021-02-22 | Outpatient (CLI) | payer OTHER, BC ==
[~2021-02-22] MED LIST changes: +ADVAIR 500-501 EACH INH; +ALPRAZOLAM XR1 MG PO; +CARAFATE1 GM PO; +IPRAT-ALBUT 0.5-3 ML INH; +METOPROLOL SUCC50 MG PO; +NICORETTE2 MG TRANSDERM; +NORVASC5 MG PO; +NYSTATIN100000 UNI SW&SWALLOW; +PLAQUENIL200 MG PO; +PREDNISONE 20 M20 M1 PO; +PROLIA60 MG/1 ML SUBQ; +PROTONIX40 M2 PO; +SLEEP AID50 MG PO
== END ==
LOC: RAD 09:38
PROVIDERS: ATTEND Internal Medicine
DX: J44.9 Chronic obstructive pulmonary disease, unspecified (principal); J90 Pleural effusion, not elsewhere classified; J98.11 Atelectasis

== ENCOUNTER → 2021-03-20 | Outpatient (CLI) | payer OTHER, BC | LOC: SJCVCIMAG 08:34 | PROVIDERS: ATTEND Internal Medicine Cardiovascular Disease | DX: I65.23 Occlusion and stenosis of bilateral carotid arteries (principal); I08.3 Combined rheumatic disorders of mitral, aortic and tricuspid valves; I12.9 Hypertensive chronic kidney disease with stage 1 through stage 4 chronic kidney disease, or unspecified chronic kidney disease; N18.30 Chronic kidney disease, stage 3 unspecified; I25.10 Atherosclerotic heart disease of native coronary artery without angina pectoris; J44.9 Chronic obstructive pulmonary disease, unspecified; Z79.899 Other long term (current) drug therapy; Z87.891 Personal history of nicotine dependence; Z95.2 Presence of prosthetic heart valve ==

== ENCOUNTER → 2021-03-21 | Outpatient (CLI) | payer OTHER, BC | LOC: SJCVC 10:59 | PROVIDERS: ATTEND Internal Medicine Cardiovascular Disease | DX: I45.19 Other right bundle-branch block (principal); R94.31 Abnormal electrocardiogram [ECG] [EKG]; I35.0 Nonrheumatic aortic (valve) stenosis; I10 Essential (primary) hypertension; E78.00 Pure hypercholesterolemia, unspecified; I25.10 Atherosclerotic heart disease of native coronary artery without angina pectoris; I77.9 Disorder of arteries and arterioles, unspecified; I65.23 Occlusion and stenosis of bilateral carotid arteries; I73.9 Peripheral vascular disease, unspecified; J44.9 Chronic obstructive pulmonary disease, unspecified; K21.9 Gastro-esophageal reflux disease without esophagitis; F17.210 Nicotine dependence, cigarettes, uncomplicated; Z79.82 Long term (current) use of aspirin; Z79.899 Other long term (current) drug therapy; Z88.8 Allergy status to other drugs, medicaments and biological substances ==

== ENCOUNTER 2021-05-22 02:32 | Emergency (ER) | payer OTHER, BC | END 2021-05-22 07:14 | LOC: ER 02:32 | DX: I46.9 Cardiac arrest, cause unspecified (principal); J44.9 Chronic obstructive pulmonary disease, unspecified; F41.9 Anxiety disorder, unspecified; I12.9 Hypertensive chronic kidney disease with stage 1 through stage 4 chronic kidney disease, or unspecified chronic kidney disease; N18.9 Chronic kidney disease, unspecified; K21.9 Gastro-esophageal reflux disease without esophagitis; Z79.899 Other long term (current) drug therapy; Z88.0 Allergy status to penicillin; Z88.8 Allergy status to other drugs, medicaments and biological substances; Z87.891 Personal history of nicotine dependence ==